=== PATIENT | male | born 1945 | race Caucasian/White ===

== ENCOUNTER 2018-12-19 17:10 | Observation (INO) | payer OTHER, SELFPAY ==
[2018-12-19] VITALS (8 sets, daily range): BP systolic 95–138; BP diastolic 62–92; PULSE 61–101; RESP 15–21; TEMP 36.6–36.8; O2SAT 96–100; BMI 22.4
--- NOTE | 2018-12-19 10:00 | DI.ECHO.S_ITS ---
Echocardiogram Report + + :Name: SUSANNE CHANDLER Study Date: 12/21/2018 Height: 73 in : :[facility] Weight: 170 lb : : Gender: Male BSA: 2.0 m2 : :: 1945 Age: 73 yrs BP: 104/65 mmHg: :Reason For Study: TIA : :Ordering Physician: : :Soy Valderrama Performed By: Heidi Cao : :Referring: TAMAR BARAJAS : + + Interpretation Summary The patient was in atrial fibrillation with heart rates between 81-106 bpm during the exam. The left ventricle is moderately dilated. Left ventricular ejection fraction is estimated to be 20 +/- 5%. There is severe global hypokinesis of the left ventricle. There is no obvious LV thrombus. The right ventricle is mildly dilated. Right ventricular systolic function is mildly reduced. There is mild to moderate mitral regurgitation. Procedure: A two-dimensional transthoracic echocardiogram with color flow and Doppler was performed. The study quality was technically good. There is no prior echocardiogram noted for this patient. The patient was in atrial fibrillation with heart rates between 81-106 bpm during the exam. Left Ventricle: The left ventricle is moderately dilated. There is normal left ventricular wall thickness. There is no thrombus. A false chord is noted (normal variant). Left ventricular ejection fraction is estimated to be 20 +/- 5%. There is severe global hypokinesis of the left ventricle. Diastolic function could not be accurately assessed due to atrial fibrillation. Right Ventricle: The right ventricle is mildly dilated. Right ventricular systolic function is mildly reduced. Atria: The left atrium is mildly dilated. Right atrial size is normal. Injection of contrast documented no interatrial shunt. Mitral Valve: The mitral valve leaflets appear mildly thickened, but open well. There is a flat closure plane of the the mitral valve leaflets. There is mild mitral annular calcification. There is mild to moderate mitral regurgitation. Aortic Valve: The aortic valve opens well. The aortic valve is not well visualized. There is discrete nodular thickening of the non- coronary cusp. The aortic valve is mildly calcified. There is no aortic valve stenosis. There is trace aortic regurgitation. Tricuspid Valve: The tricuspid valve leaflets are thickened and/or calcified, but open well. The right ventricular systolic pressure is estimated to be at least 20 mmHg based on an estimated right atrial pressure of 3 mm Hg. There is mild tricuspid regurgitation. Pulmonic Valve: The pulmonic valve is not well seen, but is grossly normal. There is trace pulmonic regurgitation. Great Vessels: The aortic root is mildly dilated. The aortic arch could not be visualized. The ascending aorta is normal in size. The IVC is of normal diameter and collapses greater than 50% with a sniff. This suggests a low right atrial pressure of 3 mm Hg. Pericardium/ Pleura There is no pericardial effusion. There is no pleural effusion. MMode/2D Measurements & Calculations LVIDd: 6.3 cm Ao root diam: 4.4 cm LVIDs: 5.3 cm Aortic Jxn: 3.4 cm FS: 15.4 % asc Aorta Diam: 3.8 cm IVSd: 1.1 cm LVPWd: 0.88 cm LV raphael. diameter/BSA (cm/m^2): 3.1 LV sys. diameter/BSA (cm/m^2): 2.7 LA dimension: 3.6 cm RA long axis: 5.3 cm LA A2 area: 28.2 cm2 RA area: 23.1 cm2 LA A4 area: 21.4 cm2 RA vol: 85.8 ml LA length (vol): 7.1 cm RA : 42.7 ml/m2 LA vol: 72.1 ml IVC diam: 1.7 cm LA vol index: 35.9 ml/m2 Doppler Measurements & Calculations Ao V2 max: 85.2 cm/sec MV P1/2t: 72.2 msec Ao V2 mean: 59.7 cm/sec Ao max P.9 mmHg Ao mean P.6 mmHg Ao V2 VTI: 14.2 cm TR max cathie: 202.9 cm/sec MV V2 mean: 23.6 cm/sec TR max P.5 mmHg MV mean P.30 mmHg PA V2 max: 46.3 cm/sec MV V2 VTI: 8.4 cm PA V2 mean: 28.8 cm/sec PA mean P.42 mmHg PA Accel Time: 0.19 sec MV P1/2t max cathie: 45.3 cm/sec MVA(P1/2t): 3.0 cm2 _ Reading Physician:02:32 PM
--- NOTE | 2018-12-19 17:25 | DI.RAD.S_ITS ---
PROCEDURE: XR CHEST 1V INDICATIONS: Possible stroke TECHNIQUE: One view of the chest was acquired. COMPARISON: None. FINDINGS: Surgical changes and devices: None. Lungs and pleura: Lungs are clear. No pleural effusions or pneumothorax. Mediastinum: Mediastinal contours appear normal. Heart size is normal. Bones and chest wall: No suspicious bony lesions. Overlying soft tissues appear unremarkable. IMPRESSION: No evidence acute pulmonary process. Dictated by: Anselmo Heredia M.D. on 12/19/2018 at 18:23 Approved by: Anselmo Heredia M.D. on 12/19/2018 at 18:24
[2018-12-19 17:34] LABS: Add Manual Diff / Slide Review NO; Basophils Absolute Auto 100 /uL (0-100); Basophils Percent Auto 0.9 % (0-2); Eosinophils Absolute Auto 100 /uL (0-450); Eosinophils Percent Auto 1.3 % (2-4); Hematocrit 47.5 % (41-53); Hemoglobin 15.7 g/dL (13.5-17.5); Lymphocytes Absolute Auto 1500 /uL (1100-4500); Lymphocytes Percent Auto 22.6 % (25-40); Mean Corpuscular Volume 93.9 fL (80-100); Monocytes Absolute Auto 600 /uL (0-900); Monocytes Percent Auto 9.6 % (3-14); Neutrophils Absolute Auto 4300 /uL (1500-7000); Neutrophils Percent Auto 65.6 % (50-75); Platelet Count 207 X10^3/uL (150-400); Red Blood Cell Count 5.06 X10^6/uL (4.5-5.9); Red Cell Distribution Width 13.3 % (11.6-14.8); White Blood Cell Count 6.6 X10^3/uL (4.5-11.0)
--- NOTE | 2018-12-19 17:37 | DI.CT.S_ITS ---
PROCEDURE: CT HEAD/BRAIN WO CON INDICATIONS: TIA/confusion in thinners TECHNIQUE: Noncontrast 4.5 mm thick angled axial sections acquired from the foramen magnum to the vertex, with coronal and sagittal reformats. For radiation dose reduction, the following was used: automated exposure control, adjustment of mA and/or kV according to patient size. COMPARISON: None. FINDINGS: Image quality: Excellent. CSF spaces: Basal cisterns are patent. No extra-axial fluid collections. Ventricles are normal in size and shape. Brain: No midline shift. No intracranial masses or hemorrhage. Quiles-white matter interface is normal. Skull and face: Calvarium and visualized facial bones are intact, without suspicious lesions. Sinuses: Visualized sinuses and mastoids are clear. IMPRESSION: Negative head CT with no evidence of acute stroke, hemorrhage, or mass. Dictated by: Anselmo Heredia M.D. on 12/19/2018 at 18:14 Approved by: Anselmo Heredia M.D. on 12/19/2018 at 18:14
[2018-12-19 17:41] LABS: INR 2.2 (0.9-1.3)
[2018-12-19 17:43] LABS: PTT Partial Thromboplastin Tim 48 SECONDS (26.4-36.2)
[2018-12-19 17:45] LABS: Alanine Aminotransferase 37 IU/L (21-72); Albumin 4.2 g/dL (3.5-5.0); Albumin Globulin Ratio 1.4 (1.0-2.8); Alkaline Phosphatase 50 U/L (38-126); Aspartate Aminotransferase 37 IU/L (17-59); BUN Creatinine Ratio 21.3 (6-22); Bilirubin Total 0.5 mg/dL (0.2-1.3); Blood Urea Nitrogen 17 mg/dL (9-20); Calcium 9.2 mg/dL (8.4-10.2); Carbon Dioxide 25 mmol/L (22-32); Chloride 105 mmol/L (98-107); Creatine Kinase 41 U/L (55-170); Estimated Glomerular Filt Rate > 60.0 mL/min (>60); Glucose 91 mg/dL (80-110); HEMOLYSIS 19 (0-50); Potassium 4.2 mmol/L (3.4-5.1); Sodium 139 mmol/L (137-145); Total Protein 7.2 g/dL (6.3-8.2)
[2018-12-19 17:48] LABS: Lipase 135 U/L (23-300)
--- NOTE | 2018-12-19 17:54 | ED_ITS ---
HPI - Neuro Symptoms/Deficit <JENNIFFER Cardona - Last Filed: 12/19/18 20:49> General Chief Complaint: Neuro Symptoms/Deficit Stated Complaint: Loss of memory, unable to speak,(resolved) Time Seen by Provider: 12/19/18 17:28 Source: patient and EMS Mode of arrival: EMS Limitations: no limitations History of Present Illness HPI Narrative: The patient is a 73-year-old male nonsmoker with history of AFib on Coumadin, hyperlipidemia, BPH, GERD who presents with a chief complaint of visual deficit and aphasia times 30 minutes. The patient stated he had sudden right-sided vision loss at 4:00 p.m. and also could not get words out. He was recently diagnosed with AFib 1 month ago, is on Coumadin. He has an echocardiogram scheduled later this month. He denies any fevers nausea vomiting or diarrhea. He states all symptoms resolved within 30 minutes. He denies any chest pain or shortness of breath. He is concerned that he has had a mini- stroke. On Anticoagulants: Yes (warfarin) Related Data Home Medications Medication Instructions Recorded Confirmed CoQ-10 1 tab PO DAILY 12/19/18 12/19/18 Reservatrol 1 dose PO DAILY 12/19/18 12/19/18 Vitamin B Tablet 1 tab PO DAILY 12/19/18 12/19/18 Vitamin D3 1 cap PO DAILY 12/19/18 12/19/18 metoprolol succinate 25 mg PO DAILY 12/19/18 12/19/18 multivitamin 1 tab PO DAILY 12/19/18 12/19/18 rosuvastatin 10 mg PO DAILY 12/19/18 12/19/18 warfarin 2.5 mg PO Q OTHER DAY 12/19/18 12/19/18 warfarin 5 mg PO Q OTHER DAY 12/19/18 12/19/18 Allergies Allergy/AdvReac Type Severity Reaction Status Date / Time No Known Drug Allergies Allergy Verified 12/19/18 17:28 Review of Systems <JENNIFFER Cardona - Last Filed: 12/19/18 20:49> Review of Systems Narrative: GENERAL: Denies chills, fatigue, malaise, fever, sweats. HEENT: Denies sinus pain, ear pain, sore throat, difficulty swallowing, dizziness. RESPIRATORY: Denies dyspnea, cough, wheezing, hemoptysis, sputum. CARDIOVASCULAR: Denies chest pain, palpitations, orthopnea, edema, GASTROINTESTINAL: Denies nausea, vomiting, abdominal pain, diarrhea, constipation, melena. : Denies dysuria, frequency, incontinence, hematuria, urinary retention. MUSCULOSKELETAL: denies weakness, joint pain, or bony pain SKIN: Denies rash, skin lesions, or other NEUROLOGIC: See HPI PSYCHIATRIC: No concerning psychosocial issues. 12 point review of systems is negative except for those stated above Patient History <JENNIFFER Cardona - Last Filed: 12/19/18 20:49> Medical History (Updated 12/19/18 @ 21:31 by JENNIFFER Cardona) Afib (Acute) Hyperlipidemia (Acute) Social History household members: spouse Smoking Status: Never smoker alcohol intake: former Social History household members: spouse Smoking Status: Never smoker alcohol intake: former Substance Use Type: does not use Exam <JENNIFFER Cardona - Last Filed: 12/19/18 20:49> Narrative Exam Narrative: GENERAL: This is a well-nourished, well-developed patient, in mild distress. HEAD: Atraumatic. Normocephalic. No temporal or scalp tenderness. EYES: Pupils equal round and reactive. Extraocular motions intact. No scleral icterus. No injection or drainage. ENT: Nose without bleeding, purulent drainage or septal hematoma. Throat without erythema, tonsillar hypertrophy or exudate. Uvula midline. Airway patent. NECK: Trachea midline. No JVD or lymphadenopathy. Supple, nontender, no meningeal signs. CARDIOVASCULAR: Regular rate and irregular rhythm without murmurs, gallops, or rubs. RESPIRATORY: Clear to auscultation. Breath sounds equal bilaterally. No wheezes, rales, or rhonchi. GASTROINTESTINAL: Abdomen soft, non-tender, nondistended. No hepato- splenomegaly, or palpable masses. No guarding. EXTREMITIES: No clubbing, cyanosis, or edema. No joint tenderness, effusion, or edema noted. BACK: Nontender without deformity or crepitance. No flank tenderness. NEURO: AOx3. No gross cranial nerve deficit. Strength is equal upper and lower extremities bilaterally. NIH score is 0. Clear speech. Sensation intact bilaterally. SKIN: No rash or erythema on visible skin Initial Vital Signs Initial Vital Signs: Vital Signs Temperature 97.9 F 12/19/18 17:21 Pulse Rate 83 12/19/18 17:21 Respiratory Rate 15 12/19/18 17:21 Blood Pressure 131/85 12/19/18 17:21 Pulse Oximetry 99 12/19/18 17:21 <Marga Mccrary DO - Last Filed: 12/20/18 02:42> Initial Vital Signs Initial Vital Signs: Vital Signs Temperature 97.9 F 12/19/18 17:21 Pulse Rate 83 12/19/18 17:21 Respiratory Rate 15 12/19/18 17:21 Blood Pressure 131/85 12/19/18 17:21 Pulse Oximetry 99 12/19/18 17:21 Scores <JENNIFFER Cardona - Last Filed: 12/19/18 20:49> ABCD2 Age >= 60 years: yes Initial BP. Either SBP >= 140 or DBP >= 90.: no Clinical features of the TIA: speech disturbance without weakness Duration of symptoms: 10-59 minutes History of diabetes: no ABCD2 Score: 3 GCS [place] coma scale eye opening: Spontaneous Melonie coma scale verbal response: Orientated [place] coma scale motor response: Obey commands [place] coma scale total score: 15 NIH Stroke Scale Level of Conciousness: Alert, keenly responsive Ask month/age: Answers both questions correctly. Open/close eyes, close hand: Performs both tasks correctly Best gaze horizontal: Normal Visual heredia: No visual loss Facial palsy: Normal symetrical movement Left arm drift: No drift for full 10 sec Right arm drift: No drift for full 10 sec Left leg drift: No drift for full 10 sec Right leg drift: No drift for full 10 sec Limb ataxia: Absent Sensory on face/arms/legs: Normal, no sensory loss Best language: No aphasia, normal Dysarthria: Normal Extinction or inattention: No abnormality Total NIH Stroke scale score: 0 Course <JENNIFFER Cardona - Last Filed: 12/19/18 20:49> Orders Ordered: Acetaminophen (Tylenol) 650 mg PO Q6HR PRN PRN Reason: As Needed for Fever/Mild Pain Al Hydrox/Mg Hydrox/Simethicone (Maalox Plus) 30 ml PO Q6HR PRN PRN Reason: Dyspepsia Bisacodyl (Dulcolax) 10 mg SD DAILY PRN PRN Reason: Constipation Calcium Carbonate (Tums) 1,000 mg PO Q4HR PRN PRN Reason: Dyspepsia Docusate Sodium (Colace) 100 mg PO BID PRN PRN Reason: Constipation Metoprolol Succinate (Toprol Xl) 25 mg PO DAILY LUDIN Ondansetron HCl (Zofran) 4 mg IV Q8HR PRN PRN Reason: Nausea And Vomiting Rosuvastatin Calcium (Crestor) 10 mg PO DAILY LUDIN Warfarin Sodium (Coumadin) 5 mg PO QOD LUDIN Warfarin Sodium (Coumadin) 2.5 mg PO QOD LUDIN Vital Signs Vital signs: Vital Signs - 8 hr 12/19/18 19:49 12/19/18 20:00 12/19/18 20:30 Pulse Rate 80 78 72 Respiratory Rate 16 20 16 Blood Pressure [Left Arm] 105/62 119/73 Pulse Oximetry 99 99 97 <Marga Mccrary DO - Last Filed: 12/20/18 02:42> Orders Ordered: Acetaminophen (Tylenol) 650 mg PO Q6HR PRN PRN Reason: As Needed for Fever/Mild Pain Al Hydrox/Mg Hydrox/Simethicone (Maalox Plus) 30 ml PO Q6HR PRN PRN Reason: Dyspepsia Bisacodyl (Dulcolax) 10 mg SD DAILY PRN PRN Reason: Constipation Calcium Carbonate (Tums) 1,000 mg PO Q4HR PRN PRN Reason: Dyspepsia Docusate Sodium (Colace) 100 mg PO BID PRN PRN Reason: Constipation Metoprolol Succinate (Toprol Xl) 25 mg PO DAILY [facility] Ondansetron HCl (Zofran) 4 mg IV Q8HR PRN PRN Reason: Nausea And Vomiting Rosuvastatin Calcium (Crestor) 10 mg PO DAILY LUDIN Warfarin Sodium (Coumadin) 5 mg PO QOD LUDIN Warfarin Sodium (Coumadin) 2.5 mg PO QOD LUDIN Vital Signs Vital signs: Vital Signs - 8 hr 12/19/18 19:49 12/19/18 20:00 12/19/18 20:30 Pulse Rate 80 78 72 Respiratory Rate 16 20 16 Blood Pressure [Left Arm] 105/62 119/73 Pulse Oximetry 99 99 97 MDM - Neuro Symptoms/Deficit <EFRAIN CardonaBC - Last Filed: 12/19/18 20:49> Lab Data Result diagrams: 12/19/18 17:25 10/15/19 17:25 Labs: Lab Results 12/19/18 12/19/18 12/19/18 Range/Units 17:25 17:25 17:25 WBC 6.6 (4.5-11.0) X10^3/uL RBC 5.06 (4.5-5.9) X10^6/uL Hgb 15.7 (13.5-17.5) g/dL Hct 47.5 (41-53) % MCV 93.9 (80-100) fL MCH 31.0 (26-34) PG MCHC 33.0 (30-36) % RDW 13.3 (11.6-14.8) % Plt Count 207 (150-400) X10^3/uL Neut % (Auto) 65.6 (50-75) % Lymph % (Auto) 22.6 L (25-40) % [place] % (Auto) 9.6 (3-14) % Eos % (Auto) 1.3 L (2-4) % Baso % (Auto) 0.9 (0-2) % Neut # (Auto) 4300 (9016-8631) /uL Lymph # (Auto) 1500 (6205-8758) /uL [place] # (Auto) 600 (0-900) /uL Eos # (Auto) 100 (0-450) /uL Baso # (Auto) 100 (0-100) /uL PT 26.0 H (10.1-12.7) SECONDS INR 2.2 H (0.9-1.3) APTT 48 H (26.4-36.2) SECONDS Sodium 139 (137-145) mmol/L Potassium 4.2 (3.4-5.1) mmol/L Chloride 105 (98-107) mmol/L Carbon Dioxide 25 (22-32) mmol/L BUN 17 (9-20) mg/dL Creatinine 0.80 (0.66-1.25) mg/dL Estimated GFR > 60.0 (>60) mL/min BUN/Creatinine Ratio 21.3 (6-22) Glucose 91 (80-110) mg/dL Calcium 9.2 (8.4-10.2) mg/dL Total Bilirubin 0.5 (0.2-1.3) mg/dL AST 37 (17-59) IU/L ALT 37 (21-72) IU/L Alkaline Phosphatase 50 (38-126) U/L Total Creatine Kinase 41 L (55-170) U/L CK-MB (CK-2) TNP CK-MB (CK-2) Rel Index TNP Troponin I < 0.012 (0.01-0.034) ng/mL Total Protein 7.2 (6.3-8.2) g/dL Albumin 4.2 (3.5-5.0) g/dL Globulin 3.0 (1.7-4.1) g/dL Albumin/Globulin Ratio 1.4 (1.0-2.8) Lipase (23-300) U/L 12/19/ Range/Units 17:41 WBC (4.5-11.0) X10^3/uL RBC (4.5-5.9) X10^6/uL Hgb (13.5-17.5) g/dL Hct (41-53) % MCV (80-100) fL MCH (26-34) PG MCHC (30-36) % RDW (11.6-14.8) % Plt Count (150-400) X10^3/uL Neut % (Auto) (50-75) % Lymph % (Auto) (25-40) % [place] % (Auto) (3-14) % Eos % (Auto) (2-4) % Baso % (Auto) (0-2) % Neut # (Auto) (0074-0106) /uL Lymph # (Auto) (7773-6106) /uL [place] # (Auto) (0-900) /uL Eos # (Auto) (0-450) /uL Baso # (Auto) (0-100) /uL PT (10.1-12.7) SECONDS INR (0.9-1.3) APTT (26.4-36.2) SECONDS Sodium (137-145) mmol/L Potassium (3.4-5.1) mmol/L Chloride (98-107) mmol/L Carbon Dioxide (22-32) mmol/L BUN (9-20) mg/dL Creatinine (0.66-1.25) mg/dL Estimated GFR (>60) mL/min BUN/Creatinine Ratio (6-22) Glucose (80-110) mg/dL Calcium (8.4-10.2) mg/dL Total Bilirubin (0.2-1.3) mg/dL AST (17-59) IU/L ALT (21-72) IU/L Alkaline Phosphatase (38-126) U/L Total Creatine Kinase (55-170) U/L CK-MB (CK-2) CK-MB (CK-2) Rel Index Troponin I (0.01-0.034) ng/mL Total Protein (6.3-8.2) g/dL Albumin (3.5-5.0) g/dL Globulin (1.7-4.1) g/dL Albumin/Globulin Ratio (1.0-2.8) Lipase 135 (23-300) U/L Urine Dip Bedside Urine Glucose Negative Bedside Urine Bilirubin - Negative Bedside Urine Ketone - Negative Urine Specific [place] 1.015 Bedside Urine Occult Blood - Negative Bedside Urine pH 6.0 Bedside Urine Protein - Negative Bedside Urine Urobilinogen - Negative Bedside Urine Nitrite - Negative Bedside Urine Leukocytes - Negative Esterase Imaging Data Chest x-ray: Radiologist's impression: [address] [address] XRay Report Signed Patient: Jerry Lawler FMR#: [id number] : 1945cct:[id number] Age/Sex: 73 / MDate of Service: 12/19/18 Loc: ED Accession Number: [id number] Procedure: XR chest 1V Ordering Provider: Prasanna Montanez D.O. PROCEDURE: XR CHEST 1V INDICATIONS: Possible stroke TECHNIQUE: One view of the chest was acquired. COMPARISON: None. FINDINGS: Surgical changes and devices: None. Lungs and pleura: Lungs are clear. No pleural effusions or pneumothorax. Mediastinum: Mediastinal contours appear normal. Heart size is normal. Bones and chest wall: No suspicious bony lesions. Overlying soft tissues appear unremarkable. IMPRESSION: No evidence acute pulmonary process. Dictated by: Anselmo Heredia M.D. on 12/19/2018 at 18:23 Approved by: Anselmo Heredia M.D. on 12/19/2018 at 18:24 CT scan - head: Radiologist's impression: Jerry Lawler F 73 M [address] [address] [address] Scan Report Signed Patient: Jerry Lawler FMR#: [id number] : 4Acct:[id number] Age/Sex: 73 / MDate of Service: 12/19/18 Loc: ED Accession Number: [id number] Procedure: CT head/brain wo con Ordering Provider: Prasanna Montanez D.O. PROCEDURE: CT HEAD/BRAIN WO CON INDICATIONS: TIA/confusion in thinners TECHNIQUE: Noncontrast 4.5 mm thick angled axial sections acquired from the foramen magnum to the vertex, with coronal and sagittal reformats. For radiation dose reduction, the following was used: automated exposure control, adjustment of mA and/or kV according to patient size. COMPARISON: None. FINDINGS: Image quality: Excellent. CSF spaces: Basal cisterns are patent. No extra-axial fluid collections. Ventricles are normal in size and shape. Brain: No midline shift. No intracranial masses or hemorrhage. Quiles-white matter interface is normal. Skull and face: Calvarium and visualized facial bones are intact, without suspicious lesions. Sinuses: Visualized sinuses and mastoids are clear. IMPRESSION: Negative head CT with no evidence of acute stroke, hemorrhage, or mass. Dictated by: Anselmo Heredia M.D. on 12/19/2018 at 18:14 Approved by: Anselmo Heredia M.D. on 12/19/2018 at 18:14 ECG Data Interpretation: Atrial fibrillation. Ventricular rate 90. No ectopy noted. QRS duration 92. MDM Narrative Medical decision making narrative: The patient is a 73-year-old male with history of AFib on Coumadin who presents with TIA symptoms. There fully resolved NIH score is currently 0. Given the patient has many risk factors including AFib, hyperlipidemia etc a feels with the patient should be admitted for further evaluation after a TIA. This would include echocardiogram, carotid duplex etc. I spoke with Tj PANTOJA hospitalist, who kindly agreed to admit the patient to observation status on telemetry for further TIA workup. Patient states understanding and has no questions or concerns. <Marga Mccrary, - Last Filed: 12/20/18 02:42> Lab Data Labs: Lab Results 12/19/18 12/19/18 12/19/18 Range/Units 17:25 17:25 17:25 WBC 6.6 (4.5-11.0) X10^3/uL RBC 5.06 (4.5-5.9) X10^6/uL Hgb 15.7 (13.5-17.5) g/dL Hct 47.5 (41-53) % MCV 93.9 (80-100) fL MCH 31.0 (26-34) PG MCHC 33.0 (30-36) % RDW 13.3 (11.6-14.8) % Plt Count 207 (150-400) X10^3/uL Neut % (Auto) 65.6 (50-75) % Lymph % (Auto) 22.6 L (25-40) % [place] % (Auto) 9.6 (3-14) % Eos % (Auto) 1.3 L (2-4) % Baso % (Auto) 0.9 (0-2) % Neut # (Auto) 4300 (7581-1159) /uL Lymph # (Auto) 1500 (9002-6413) /uL [place] # (Auto) 600 (0-900) /uL Eos # (Auto) 100 (0-450) /uL Baso # (Auto) 100 (0-100) /uL PT 26.0 H (10.1-12.7) SECONDS INR 2.2 H (0.9-1.3) APTT 48 H (26.4-36.2) SECONDS Sodium 139 (137-145) mmol/L Potassium 4.2 (3.4-5.1) mmol/L Chloride 105 (98-107) mmol/L Carbon Dioxide 25 (22-32) mmol/L BUN 17 (9-20) mg/dL Creatinine 0.80 (0.66-1.25) mg/dL Estimated GFR > 60.0 (>60) mL/min BUN/Creatinine Ratio 21.3 (6-22) Glucose 91 (80-110) mg/dL Calcium 9.2 (8.4-10.2) mg/dL Total Bilirubin 0.5 (0.2-1.3) mg/dL AST 37 (17-59) IU/L ALT 37 (21-72) IU/L Alkaline Phosphatase 50 (38-126) U/L Total Creatine Kinase 41 L (55-170) U/L CK-MB (CK-2) TNP CK-MB (CK-2) Rel Index TNP Troponin I < 0.012 (0.01-0.034) ng/mL Total Protein 7.2 (6.3-8.2) g/dL Albumin 4.2 (3.5-5.0) g/dL Globulin 3.0 (1.7-4.1) g/dL Albumin/Globulin Ratio 1.4 (1.0-2.8) Lipase (23-300) U/L 12/19/18 Range/Units 17:41 WBC (4.5-11.0) X10^3/uL RBC (4.5-5.9) X10^6/uL Hgb (13.5-17.5) g/dL Hct (41-53) % MCV (80-100) fL MCH (26-34) PG MCHC (30-36) % RDW (11.6-14.8) % Plt Count (150-400) X10^3/uL Neut % (Auto) (50-75) % Lymph % (Auto) (25-40) % [place] % (Auto) (3-14) % Eos % (Auto) (2-4) % Baso % (Auto) (0-2) % Neut # (Auto) (0914-9543) /uL Lymph # (Auto) (9343-8385) /uL [place] # (Auto) (0-900) /uL Eos # (Auto) (0-450) /uL Baso # (Auto) (0-100) /uL PT (10.1-12.7) SECONDS INR (0.9-1.3) APTT (26.4-36.2) SECONDS Sodium (137-145) mmol/L Potassium (3.4-5.1) mmol/L Chloride (98-107) mmol/L Carbon Dioxide (22-32) mmol/L BUN (9-20) mg/dL Creatinine (0.66-1.25) mg/dL Estimated GFR (>60) mL/min BUN/Creatinine Ratio (6-22) Glucose (80-110) mg/dL Calcium (8.4-10.2) mg/dL Total Bilirubin (0.2-1.3) mg/dL AST (17-59) IU/L ALT (21-72) IU/L Alkaline Phosphatase (38-126) U/L Total Creatine Kinase (55-170) U/L CK-MB (CK-2) CK-MB (CK-2) Rel Index Troponin I (0.01-0.034) ng/mL Total Protein (6.3-8.2) g/dL Albumin (3.5-5.0) g/dL Globulin (1.7-4.1) g/dL Albumin/Globulin Ratio (1.0-2.8) Lipase 135 (23-300) U/L Urine Dip Bedside Urine Glucose Negative Bedside Urine Bilirubin - Negative Bedside Urine Ketone - Negative Urine Specific [place] 1.015 Bedside Urine Occult Blood - Negative Bedside Urine pH 6.0 Bedside Urine Protein - Negative Bedside Urine Urobilinogen - Negative Bedside Urine Nitrite - Negative Bedside Urine Leukocytes - Negative Esterase Discharge Plan Departure Patient Disposition: Admitted as Observation Clinical Impression: Brain TIA Discharge Date/Time: 12/19/18 21:40 Admit Date/Time: 12/19/18 20:31 Admit Provider: Nakul Spencer
[2018-12-19 17:57] LABS: Troponin I < 0.012 ng/mL (0.01-0.034)
--- NOTE | 2018-12-19 20:30 | PC.NURSE ---
2030 Attempted to give report, RN unavailable for report and nursing supervisor patching stated RN had another admission and would call to get report when available.
--- NOTE | 2018-12-19 22:04 | PC.NURSE ---
Pt arrived from ED alert/oriented. Denies any discomfort. States that all S/S resolved. HL RFA intact NIH score = 0 Pt oriented to room and call system. Call light w/in reach, bed alarm on for pt safety. Continue w/plan of care.
--- NOTE | 2018-12-19 23:29 | DI.MRI.S_ITS ---
PROCEDURE: MR STROKE Pre- and post-contrast brain MRI, non-contrast brain MR angiogram, pre- and postcontrast neck MR angiogram INDICATIONS: TIA, Atrial fibrillation TECHNIQUE: Brain: Noncontrast axial T1 spin echo, axial T2 fast spin echo, sagittal and axial FLAIR, coronal T2 fast spin echo, axial gradient echo, axial diffusion and ADC through the brain. After the administration of contrast, axial 3D VIBE of the cranial vasculature and brain. Brain MRA: Non-contrast 3-D time of flight MR angiogram, with multiple gpioqhs-usmnrvtbb-mnvnfutcyy (MIP) reformats performed. Neck MRA: Axial and sagittal TruFISP through the neck. Coronal dynamic MR angiogram during administration of contrast in the arterial and venous phases, with 3-dimenstional mqyptvi-bninmmtri-annnswofhb (MIP) reformats constructed from subtraction images. COMPARISON: [facility], CT, CT HEAD/BRAIN WO CON, 12/19/2018, 17:41. FINDINGS: Image quality: Excellent. BRAIN: CSF spaces: Ventricles are normal in size and shape. Basal cisterns are patent. No extra-axial fluid collections. Brain: No intracranial bleeds or mass effects. Quiles-white matter interface is normal. Diffusion weighted images show no acute ischemic insults. There is mild, diffuse cerebral volume loss. Brainstem appears normal. Normal intravascular flow voids are present. No GRE weighted abnormalities identified in the brain parenchyma. No abnormal intracranial enhancement. Skull and face: Calvarial marrow signal is normal. Orbits appear normal. Sinuses: Sinuses and mastoids are clear. BRAIN MR ANGIOGRAM: Anterior circulation: Intracranial internal carotid arteries are normal in size and enhancement. The flow within the paired anterior cerebral arteries is normal and symmetric. The flow within the middle cerebral arteries is normal and symmetric. The anterior communicating artery is seen. No stenoses, occlusions, or aneurysms. Posterior circulation: The visualized portions of the vertebral arteries demonstrate normal caliber, and join to form a normal appearing basilar artery. The flow within the posterior cerebral arteries is normal and symmetric. No stenoses, occlusions, or aneurysms. NECK MR ANGIOGRAM: Carotids: Great vessels demonstrate a conventional anatomy as they arise from the aortic arch. The origins of the common carotid arteries appear patent. The calibers and courses of both common carotid arteries are normal. The bifurcation regions appear normal bilaterally. The internal carotid arteries demonstrate normal course and caliber. Posterior circulation: The origins of the vertebral arteries appear patent. The left vertebral artery is dominant. More superior portions of both vertebral arteries demonstrate normal course and caliber, and join to form a normal appearing basilar artery. Miscellaneous: Subclavian arteries appear patent. Pre-contrast images through the neck show no soft tissue abnormalities. IMPRESSION: BRAIN MRI: 1. No acute intracranial disease process. 2. No areas of acute or chronic infarction. 3. No intracranial hemorrhage. 4. No abnormal intracranial mass or suspicious postcontrast enhancement. 5. Mild, diffuse cerebral volume loss. BRAIN MR ANGIOGRAM: Negative examination. NECK MR ANGIOGRAM: Negative examination. Dictated by: Anali Garcia MD, PhD on 12/20/2018 at 9:53 Approved by: Anali Garcia MD, PhD on 12/20/2018 at 10:09
--- NOTE | 2018-12-19 23:49 | PC.NURSE ---
APARTMENT COORDINATOR: accidentally hit Advanced directives instead of ADLs (which was right above this one). Will not let me undo this. Alerted rn
[2018-12-20] VITALS (12 sets, daily range): BP systolic 102–132; BP diastolic 62–80; PULSE 75–95; RESP 16–20; TEMP 36.2–36.9; O2SAT 94–100; BMI 22.2
--- NOTE | 2018-12-20 06:02 | P.HP_ITS ---
History of Present Illness History of Present Illness Date Patient Seen: 12/20/18 Time Patient Seen: 23:10 Chief complaint: Loss of memory, unable to speak,(resolved) Narrative: Mr. Jerry Lawler this is a 73-year-old male patient with history significant of newly diagnosed atrial fibrillation 1 month ago started on warfarin therapy, hyperlipidemia, BPH, and GERD who presents to the ER with an abrupt onset of right visual field loss in both eyes at 4:00 p.m. the patient also developed aphasia stating he knew what he wanted to say could not get the words out. He states the symptoms abated by proximally 6:00 p.m. and had resolved by arrival to the ER. Patient had no prodromal symptoms no complaints of headaches or dizziness, no prior visual changes, no complaints of sore throat or nasal congestion. He reports no neck pain or back pain has no complaints of chest pain and appears unaware of his irregular heart rate. He reports no complaints of shortness of breath cough or wheezing. He has no abdominal pain nausea vomiting or changes in bowel or bladder habits. He experienced no ataxia or limb weakness. Upon arrival to the ER the patient is afebrile with temperature 97.9?, heart rate of 83, blood pressure 131/85, respirations of 15 with saturation of 99% on room air. He underwent CT which found no intracranial pathology and a chest x- ray was completed which also was negative for significant findings. His EKG shows atrial fibrillation with ventricular rate of [address] or T-wave changes. On laboratory analysis white count 6.6, hemoglobin of 15.7, hematocrit 47.5 and platelets of 207. On coagulation he has a PT of 26.0, PTT of 48 an INR of 2.0. His electrolytes are all within normal limits and has a BUN of 17 and creatinine is 0.8 with a nonfasting glucose of 91. His liver functions are all within normal range. The patient is admitted for further monitoring evaluation of TIA. Patient History Medical History (Updated 12/20/18 @ 06:14 by SCARLETT Cardenas) Afib (Acute) BPH (benign prostatic hyperplasia) (Acute) GERD (gastroesophageal reflux disease) (Acute) Hyperlipidemia (Acute) Surgical History (Updated 12/20/18 @ 06:14 by SCARLETT Cardenas) No history of previous surgery (Acute) Social History household members: spouse Smoking Status: Never smoker alcohol intake: former Family & Social History Social History: household members spouse Prior Living Arrangements House Safety & Behavioral: Feels Safe in Current Yes Environment Been Physically Hurt or No Threatened By a Person Suicidal Ideation Description None Suicide Plan Description No Plan Tobacco & Substance use: Smoking Status Never smoker alcohol intake former Substance Use Type does not use Comment: The patient lives in a single family 2 story home with his to whom he has been for 42 years. He provides a family history his father passing away at age of 71 with lung cancer and was a heavy smoker. His mother at 88 with bone cancer. He has 1 brother 1 sister both of whom he describes is in good health. Smoking: The patient reports never using tobacco products. Alcohol: The patient was a moderate drinker and quit 3 years ago. Substance use the patient denies recreational pharmaceuticals, use of herbal or cannabis products. Advanced directives: The patient states he does have formal advanced directive and indicates his wish to be FULL CODE. He designates his to be surrogate decision maker. Meds Home Medications and Allergies Home Medications Medication Instructions Recorded Confirmed Type CoQ-10 1 tab PO DAILY 12/19/18 12/19/18 History Reservatrol 1 dose PO DAILY 12/19/18 12/19/18 History Vitamin B Tablet 1 tab PO DAILY 12/19/18 12/19/18 History Vitamin D3 1 cap PO DAILY 12/19/18 12/19/18 History metoprolol succinate 25 mg PO DAILY 12/19/18 12/19/18 History multivitamin 1 tab PO DAILY 12/19/18 12/19/18 History rosuvastatin 10 mg PO DAILY 12/19/18 12/19/18 History warfarin 2.5 mg PO Q OTHER DAY 12/19/18 12/19/18 History warfarin 5 mg PO Q OTHER DAY 12/19/18 12/19/18 History Allergies Allergy/AdvReac Type Severity Reaction Status Date / Time No Known Drug Allergies Allergy Verified 12/19/18 17:28 Review of Systems Review of Systems ROS Unobtainable: All systems reviewed & are unremarkable except as noted in HPI and below Exam Vital Signs (past 8 hours): - 12/19/18 22:21 12/19/18 23:29 12/20/18 00:10 Temperature 98.1 F 98.3 F Pulse Rate 82 77 Respiratory Rate 18 16 Blood Pressure 138/89 122/78 Pulse Oximetry 100 96 96 Oxygen Delivery Method Room Air Oxygen Flow Rate 0 Narrative Exam Narrative: GENERAL APPEARANCE: well developed, well nourished, in no acute distress. HEENT: Normocephalic, no ptosis, PERRLA, conjunctiva clear, EOMs intact without nystagmus, visual heredia intact, no sinus tenderness to percussion, no rhinorrhea, mucous membranes are moist and pink without lesions or exudate. NECK/THYROID: neck supple, no JVD, no carotid bruit, no thyromegaly, trachea midline. LYMPH NODES: no cervical or supraclavicular lymphadenopathy. SKIN: warm and dry, no suspicious lesions, no rashes, ulcerations or petechiae. HEART: Irregularly irregular rhythm, S1-S2, no murmur, no rubs or gallops, brisk capillary refill, no edema LUNGS: clear to auscultation bilaterally, no coarseness crackles or wheezing, no cough present CHEST: Symmetrical movement, no accessory muscle use, no pain to AP and lateral compression. ABDOMEN: Soft, no distention, no abdominal tenderness, no organomegaly, no flank or suprapubic tenderness, active bowel tones. BACK: Normal curvature, nontender to palpation, no CVA tenderness on percussion EXTREMITIES: moves all extremities, strength is 5/5 and symmetrical, no deformities or joint effusions. NEUROLOGIC: AAO x4, no focal neurologic deficits, cranial nerves II-XII grossly intact, NIH score 0, sensation intact to light touch. PSYCH: alert, cognitive function intact, good eye contact, appropriate with stable behavior Objective Labs Result Diagrams: 12/19/18 17:25 12/20/18 05:20 Labs: Laboratory Results - last 24 hr 12/19/18 12/19/18 12/19/18 17:25 17:25 17:25 WBC 6.6 RBC 5.06 Hgb 15.7 Hct 47.5 MCV 93.9 MCH 31.0 MCHC 33.0 RDW 13.3 Plt Count 207 Neut % (Auto) 65.6 Lymph % (Auto) 22.6 L [place] % (Auto) 9.6 Eos % (Auto) 1.3 L Baso % (Auto) 0.9 Neut # (Auto) 4300 Lymph # (Auto) 1500 [place] # (Auto) 600 Eos # (Auto) 100 Baso # (Auto) 100 PT 26.0 H INR 2.2 H APTT 48 H Sodium 139 Potassium 4.2 Chloride 105 Carbon Dioxide 25 BUN 17 Creatinine 0.80 Estimated GFR > 60.0 BUN/Creatinine Ratio 21.3 Glucose 91 Calcium 9.2 Total Bilirubin 0.5 AST 37 ALT 37 Alkaline Phosphatase 50 Total Creatine Kinase 41 L CK-MB (CK-2) TNP CK-MB (CK-2) Rel Index TNP Troponin I < 0.012 Total Protein 7.2 Albumin 4.2 Globulin 3.0 Albumin/Globulin Ratio 1.4 Lipase 12/19/18 17:41 WBC RBC Hgb Hct MCV MCH MCHC RDW Plt Count Neut % (Auto) Lymph % (Auto) [place] % (Auto) Eos % (Auto) Baso % (Auto) Neut # (Auto) Lymph # (Auto) [place] # (Auto) Eos # (Auto) Baso # (Auto) PT INR APTT Sodium Potassium Chloride Carbon Dioxide BUN Creatinine Estimated GFR BUN/Creatinine Ratio Glucose Calcium Total Bilirubin AST ALT Alkaline Phosphatase Total Creatine Kinase CK-MB (CK-2) CK-MB (CK-2) Rel Index Troponin I Total Protein Albumin Globulin Albumin/Globulin Ratio Lipase 135 Assessment & Plan Assessment & Plan narrative: This is a 73-year-old male patient who is admitted to the hospital following spontaneous resolving neurological symptoms consistent with TIA. The patient is also newly diagnosed with atrial fibrillation and is on Coumadin therapy with a therapeutic INR. 1. Transitory ischemic attack, acute, resolved upon arrival, active -the patient developed right visual field cut and expressive aphasia at approximately 4:00 p.m. and resolving by 6:00 p.m.. -patient is newly diagnosed with atrial fibrillation and is anticoagulated on warfarin with therapeutic INR of 2.2 -serial neurologic evaluations -patient is on cardiac telemetry -will obtain echocardiogram -will obtain MR stroke protocol 2. persistent atrial fibrillation, present on admission, active -patient diagnosed with atrial fibrillation 1 month ago -anticoagulated on warfarin alternating doses of 2.5 in 5 mg every other day, INR is therapeutic at 2.2. -continue current rate control with metoprolol succinate 25 mg daily. -will obtain echocardiogram 3. Hyperlipidemia, chronic, active -will increase the patient's rosuvastatin dose to 20 mg daily. -will obtain lipid panel. 4. Gastroesophageal reflux disorder, chronic, present on admission, active -Maalox and calcium carbonate as needed. The patient is admitted to the hospital related to severity of symptoms and associated risk of adverse events or complications. The patient is admitted as observation with expected length of stay to be less than 2 midnights. Scores GCS Melonie coma scale eye opening: Spontaneous [place] coma scale verbal response: Orientated Melonie coma scale motor response: Obey commands [place] coma scale total score: 15 ABCD2 Age >= 60 years: yes Initial BP. Either SBP >= 140 or DBP >= 90.: yes Clinical features of the TIA: speech disturbance without weakness Duration of symptoms: >= 60 minutes History of diabetes: no ABCD2 Score: 5 NIHSS Level of Conciousness: Alert, keenly responsive Ask month/age: Answers both questions correctly. Open/close eyes, close hand: Performs both tasks correctly Best gaze horizontal: Normal Visual heredia: No visual loss Facial palsy: Normal symetrical movement Left arm drift: No drift for full 10 sec Right arm drift: No drift for full 10 sec Left leg drift: No drift for full 5 sec Right leg drift: No drift for full 5 sec Limb ataxia: Absent Sensory on face/arms/legs: Normal, no sensory loss Best language: No aphasia, normal Dysarthria: Normal Extinction or inattention: No abnormality Total NIH Stroke scale score: 0 Quality VTE Deep Vein Thrombosis/Pulmonary Embolism Present on Admission: No
[2018-12-20 06:05] LABS: Alanine Aminotransferase 32 IU/L (21-72); Albumin 3.6 g/dL (3.5-5.0); Albumin Globulin Ratio 1.3 (1.0-2.8); Alkaline Phosphatase 49 U/L (38-126); Aspartate Aminotransferase 36 IU/L (17-59); BUN Creatinine Ratio 17.5 (6-22); Bilirubin Total 0.6 mg/dL (0.2-1.3); Blood Urea Nitrogen 14 mg/dL (9-20); Calcium 8.9 mg/dL (8.4-10.2); Carbon Dioxide 25 mmol/L (22-32); Chloride 108 mmol/L (98-107); Cholesterol 128 mg/dL (140-199); Estimated Glomerular Filt Rate > 60.0 mL/min (>60); Globulin 2.8 g/dL (1.7-4.1); Glucose 87 mg/dL (80-110); HDL Cholesterol 43 mg/dL (40-60); HEMOLYSIS 19 (0-50); LDL Cholesterol Calculated 66 mg/dL (<100); Potassium 3.8 mmol/L (3.4-5.1); Sodium 138 mmol/L (137-145); Total Protein 6.4 g/dL (6.3-8.2); Triglycerides 94 mg/dL (35-150)
[2018-12-20] MEDS: METOPROLOL ER 25 MG TABLET PO (10:19)
[2018-12-20] MEDS: ROSUVASTATIN 10 MG TABLET 20 MG PO (10:19)
[2018-12-20] MEDS: SODIUM CHLORIDE 0.9% FLUSH 10 ML IV ×2 (10:20→22:18)
--- NOTE | 2018-12-20 11:12 | PT.IIE ---
Surgical History (Last Updated 12/20/18 @ 06:14 by SCARLETT Cardenas) No history of previous surgery (Acute) Medical History (Last Updated 12/20/18 @ 06:14 by SCARLETT Cardenas) Afib (Acute) BPH (benign prostatic hyperplasia) (Acute) GERD (gastroesophageal reflux disease) (Acute) Hyperlipidemia (Acute) Physical Therapy Inpatient Evaluation/Re-Eval M1 PT/OT-IP Prior Functional Status Start: 12/20/18 08:16 Freq: NEEDED Status: Active Protocol: Document 12/20/18 08:45 (Rec: 12/20/18 11:11 [id number]) Medical Review Prior Functional Status Medical History Reviewed Yes Communication no deficits noted. Able to make needs known Mobility and Gait independent with mobility and community without using AD. Activities of Daily Living and IADL's Independent with ADLs and IADLs Social History Household Members spouse Living Arrangements House Number of Floors (Floors) Two Floors Number of Stairs To Enter/Railing? no HARJIT to 2nd level home. 10 steps down with L rail to 1st level Home Environment Standard Height Toilet,Walk in Shower Home Equipment Straight Cane Employment Status Retired Additional Social History Comment Pt lives with his spouse in [facility]. They primarily stay on 2nd level. 1st level has guest rooms. Pt was dx with A- fib a month ago. He had R visual field change and expressive aphasia yesterday from 4-6pm but it was resolved after he was admitted to . M2 PT-IP Current Condition Start: 12/20/18 08:16 Freq: NEEDED Status: Active Protocol: Document 12/20/18 08:45 (Rec: 12/20/18 11:11 [id number]) Physical Therapy Current Condition Current Condition Evaluation Date 12/20/18 Treatment Diagnosis TIA, loss of memory, visual field change, expressive aphasia Onset Date 12/19/18 Weight Bearing Status Weight Bearing Status Full Weight Bearing M3 PT-IP Subjective Start: 12/20/18 08:16 Freq: NEEDED Status: Active Protocol: Document 12/20/18 08:45 (Rec: 12/20/18 11:11 [id number]) Subjective Physical Therapy Visit Type Type Initial Evaluation Visit Start Time 08:45 Visit Stop Time 09:00 Total Visit Minutes 15 Notes Pt is going to have MRI and echo this morning. Number of MINE CAR DISPATCHER Visits 0 Physical Therapy Visit Comments Patient Comments I feel normal at this point. Patient Goals To return home with spouse Therapy Pain Assessment Pain Present Pain Present Denied Pain M4 PT-IP Mobility and Gait Start: 12/20/18 08:16 Freq: NEEDED Status: Active Protocol: Document 12/20/18 08:45 (Rec: 12/20/18 11:11 [id number]) PT-Bed Mobility Assessment Rolling Type of Rolling Roll to Left Level of Assist Independent Supine to Sit Supine to Sit Independent Scooting Scooting to Edge of Bed Independent Scooting Up and Down in Bed Independent PT-Transfer Assessment Sit to and From Stand Sit to and from Stand Independent Equipment Transfer Assistive Device None Orthotic/Prosthetic Devices or Brace: No Transfers Transfer Destination Bed,Chair Transfer Technique Stand Step Pivot Transfer Ability Level of Assist Independent Comments Mobility Comments Pt was in bed upon assessment. He completed supine to long sit and sitting EOB independently. He then stood up without UE support and amb half of the AC unit without AD for ~220 ft. Pt appears very steady and no LOB signs. He was also able to single leg stance up to 5-10 seconds equally on both sides. Gait Assessment Gait Gait Assistance Required: Independent Distance (Feet) 220 Able to Maintain Weight Bearing Status Yes During Gait Assistive Devices Assistive Device None Orthotic/Prosthetic Devices or Brace: No Gait Deviations General Gait Pattern Within Normal Limits Comments Gait Comments see mobility comments Stair Climbing Assessment Evaluation Level of Assist On Stairs Independent,Standby Assistance Devices Stair Climbing Assistive Devices None,Left Railing Technique/Endurance Stair Climbing Direction Ascend and Descend Stair Climbing Technique Step Over Step,Step to Step Number of Steps Climbed 3 Query Text: Stair Climbing Set # Repetitions (reps) 2 Comments Stair Climbing Comments SBA for stair climbing without L rail Independent for stair climbing with L rail PT-Balance Assessment Sitting Balance and Reactions Static Sitting Balance Ability Normal Dynamic Sitting Balance Ability Normal Standing Balance and Reactions Static Standing Balance Ability Normal Dynamic Standing Balance Ability Normal Device Used none Balance Tests Single Limb Standing 5-10s M5 PT-IP Objective Assessments Start: 12/20/18 08:16 Freq: NEEDED Status: Active Protocol: Document 12/20/18 08:45 (Rec: 12/20/18 11:11 [id number]) Orientation Orientation/Cognition Level of Alertness Alert Orientation Name,Age,Birthday,Month,Date, Year,Day of Week,Place, Situation Language Function Ability No Deficits Noted Safety Awareness Understands Safety Issues Memory Description No Deficits Noted Gross Range of Motion Upper Extremity ROM Assessment Within Functional Limits Lower Extremity ROM Assessment Within Functional Limits Strength Upper Extremity Strength Assessment Within Functional Limits Lower Extremity Strength Assessment Within Functional Limits Coordination Assessment Gross Coordination Gross Coordination WNL Assessment Finger to Nose Test Normal Performance Pronation/Supination Test Normal Performance Foot Tapping Test Normal Performance Heel on Leonard Test Normal Performance Sensation Assessment Sensation Gross Sensation WNL Light Touch Intact Proprioception (Position) Intact Muscle Tone Muscle Tone WNL Yes M6 PT-IP Treatment Start: 12/20/18 08:16 Freq: NEEDED Status: Active Protocol: Document 12/20/18 08:45 (Rec: 12/20/18 11:11 [id number]) Physical Therapy Treatment Education Education Provided Safety M7 PT-IP Assessment and Plan Start: 12/20/18 08:16 Freq: NEEDED Status: Active Protocol: Document 12/20/18 08:45 (Rec: 12/20/18 11:11 [id number]) PT Summary Assessment and Plan Potential Rehabilitation Potential Excellent Status of Condition at Evaluation Stable Summary Progress Towards Goals Safe For Discharge Assessment Summary Pt is an eval only for possible TIA. Upon assessment, pt's symptoms have resolved from yesterday already. He did not present any deficits from gross motor and fine motor control. Overall ROM and strength remains intact and at baseline. No signs of LOB noticed. Visual field is also intact. Pt will have echo and MRI screen for further evaluation. Pt does not need skilled therapy at this point and he will be safe to be d/c home once he is medically stable. Frequency of Treatment Frequency Of Treatment Discharge Discharge Recommendations PT Discharge Recommendations Home
--- NOTE | 2018-12-20 11:49 | CM.DANOTE ---
DCP:Case received, EMR reviewed and met with patient. Introduced self and role. Was able to meet with patient in his room to obtain baseline health and activity information. DCP assessment/template completed with information currently available. Patient is a 73 year old male who admitted yesterday evening to the care of the hospitalist team. PCP: Dr. Valderrama. Payer: confirmed: [facility]. Patient came to the hospital via ambulance secondary to some apashia and some temporary loss of his vision. Patient had recently had a physical with Dr. Valedrrama, and was diagnosed with a-fib, and was started on Warfarin. Patient diagnosed with TIA, but he is having an MRI today. Met with patient in his room. His speech was clear, stated, he vision was improved. Stated that he had never had these type of symptoms before. Patient is independent at baseline, and resides with his , Xochilt, in [place]. P: DCP to continue to follow. He could potentially go home today depending on test results. Telma Maravilla RN/Portable Feed Mill Operator
--- NOTE | 2018-12-20 14:47 | OT.IP.EVAL ---
Past Medical History (Last Updated 12/20/18 @ 06:14 by SCARLETT Cardenas) Afib (Acute) BPH (benign prostatic hyperplasia) (Acute) GERD (gastroesophageal reflux disease) (Acute) Hyperlipidemia (Acute) Surgical History (Last Updated 12/20/18 @ 06:14 by SCARLETT Cardenas) No history of previous surgery (Acute) Occupational Therapy Inpatient Evaluation/Re-Eval M1 PT/OT-IP Prior Functional Status Start: 12/20/18 14:21 Freq: NEEDED Status: Active Protocol: Document 12/20/18 14:21 [facility] (Rec: 12/20/18 14:46 [facility] [id number]) Medical Review Prior Functional Status Medical History Reviewed Yes Communication no deficits noted. Able to make needs known Mobility and Gait independent with mobility and community without using AD. Activities of Daily Living and IADL's Independent with ADLs and IADLs Prior Functional Level (Other details) Pt volunteers at the [employer]. Social History Household Members spouse Living Arrangements House Number of Floors (Floors) Two Floors Number of Stairs To Enter/Railing? no HARJIT to 2nd level home. 10 steps down with L rail to 1st level Home Environment Standard Height Toilet,Walk in Shower Home Equipment Straight Cane Employment Status Retired Additional Social History Comment Pt lives with his spouse in [facility]. They primarily stay on 2nd level. 1st level has guest rooms. Pt was dx with A- fib a month ago. He had R visual field change and expressive aphasia yesterday from 4-6pm but it was resolved after he was admitted to . M2 OT-IP Current Condition Start: 12/20/18 14:21 Freq: Status: Active Protocol: Document 12/20/18 14:21 [facility] (Rec: 12/20/18 14:46 [facility] [id number]) Occupational Therapy Current Condition Current Condition Evaluation Date 12/20/18 Treatment Diagnosis TIA Diagnosis Onset Date 12/19/18 Weight Bearing Status Weight Bearing Status Weight Bear as Tolerated M3 OT- IP Subjective and Pain Start: 12/20/18 14:21 Freq: Status: Active Protocol: Document 12/20/18 14:21 [facility] (Rec: 12/20/18 14:46 [facility] [id number]) OT- Subjective Occupational Therapy Visit Type Type Initial Evaluation Visit Start Time 14:00 Visit Stop Time 14:16 Total Visit Minutes 16 Occupational Therapy Visit Comments Patient Comments Pt agreeable to get up for OT eval. Patient/Caregiver Goals Pt wanting to go home after medical testing completed. OT Pain Assessment Pain When Pain Assessed At Rest Pain Present Pain Present Denied Pain M4 OT- IP ADL's Start: 12/20/18 14:21 Freq: Status: Active Protocol: Document 12/20/18 14:21 [facility] (Rec: 12/20/18 14:46 [facility] [id number]) OT ADL-Dressing General Eval Lower Body Dressing Ability Independent Comments OT Dressing Comments Pt able to leon tie shoes while sitting. OT ADL-Toileting Comments OT Toileting Comments Pt states has been independent for all toileting needs in the room. M5 OT- IP IADL's Start: 12/20/18 14:21 Freq: Status: Active Protocol: Document 12/20/18 14:21 [facility] (Rec: 12/20/18 14:46 [facility] [id number]) OT-Instrumental Activities of Daily Living Home Safety Awareness Ability to Problem Solve Emergency Able to Problem Solve Situations Home Safety Comments Pt able to answer home safety situation with 100% accuracy. Medication Management Medication Management No Deficits Identified Money Management Money Management No Deficits Identified M6 OT- IP Functional Cognition Start: 12/20/18 14:21 Freq: Status: Active Protocol: Document 12/20/18 14:21 [facility] (Rec: 12/20/18 14:46 [facility] [id number]) Cognitive Factors Limiting Selfcare Function Cognitive Ability Level of Alertness Alert Patient Orientation Name,Age,Birthday,Month,Date, Year,Day of Week,Place, Situation Attention Span Ability Capable of Focused Attention, Capable of Sustained Attention Ability to Follow Commands Able to Follow Multi-Step Commands Memory Description No Deficits Noted Safety Awareness No Deficits Noted Problem Solving Ability No deficits Noted Executive Function Ability Unable to Remember Details Cognitive Comments Cognitive Assessment Comments Pt able to follow multiple commands. Pt scored 112 seconds on [place] [employer] B which implies mild deficits for mental flexibility and executive function. Suggested for pt to drive with his initially and slowly get back to his daily routine. OT- Vision and Hearing OT- Hearing Assessment OT- Hearing Assessment WFL OT- Vision Assessment Visual Acuity WFL Occular Pursuits WFL Visual Convergence WFL Visual [place] WFL Diplopia Absent M7 OT- IP Mobility and Balance Start: 12/20/18 14:21 Freq: Status: Active Protocol: Document 12/20/18 14:21 [facility] (Rec: 12/20/18 14:46 [facility] [id number]) OT- Bed Mobility Assessment Supine to Sit Supine to Sit Assist Independent OT-Transfer Assessment Sit to and From Stand Sit to and from Stand Independent Transfers Transfer Ability Independent Technique Transfer Destination Bed,Chair Transfer Technique Stand Step Pivot Devices Transfer Assistive Devices None Comments Mobility Comments Pt completely independent in the room without a device. OT- Balance Assessment Sitting Balance and Reactions Static Sitting Balance Ability Normal Dynamic Sitting Balance Ability Normal Standing Balance and Reactions Static Standing Balance Ability Normal Dynamic Standing Balance Ability Good Comments Other Balance Tests/Deviations/Treatment Pt able to get up and down : from the floor independently and able to lift carry the garbage can while walking in the room. M8 OT- IP Objective Assessments Start: 12/20/18 14:21 Freq: Status: Active Protocol: Document 12/20/18 14:21 [facility] (Rec: 12/20/18 14:46 [facility] [id number]) OT Gross Range of Motion Upper Extremity Range of Motion Assessment Within Functional Limits OT Strength Upper Extremity Strength Assessment Within Functional Limits OT-Muscle Tone Assessment Muscle Tone WNL Yes M9 OT- IP Assessment and Plan Start: 12/20/18 14:21 Freq: Status: Active Protocol: Document 12/20/18 14:21 [facility] (Rec: 12/20/18 14:46 [facility] [id number]) OT Summary Assessment and Plan Potential Rehabilitation Potential Excellent Analytic Complexity at Evaluation Low Summary Progress Towards Goals Safe For Discharge Assessment Summary Pt low complexity with TIA which all symptoms have resolved. Noted mild impairment for higher level cognitive task and suggested that pt have with him prior to trying to drive on his own. In addition to get back to his daily routine slowly and have there. For example, to not to do all the yard work in one day and do it a little bit at a time and when present. Pt expected to go home after all testing completed. Discharge pt from OT services. Goals Patient/Caregiver Education Goal Demonstrate Energy Conservation and Pacing Days to Meet Goals 1 Frequency of Treatment Frequency Of Treatment Once a Day Treatment Plan OT Treatment Plan Patient/Family Education, Discharge Planning Discharge Recommendations OT Discharge Recommendations Home with Assistance
--- NOTE | 2018-12-20 16:24 | P.PN_ITS ---
Subjective Subjective Date Patient Seen: 12/20/18 Interval history: Patient is a 73-year-old male who was admitted to the hospital for evaluation of a probable TIA. Patient developed abrupt onset of vision loss in both eyes associated with expressive aphasia. His symptoms quickly resolved. He has had no further visual changes and no further speech abnormalities. Exam Vital Signs (past 8 hours): - 12/20/18 10:00 12/20/18 10:19 12/20/18 12:00 Temperature 97.5 F L Pulse Rate 78 Respiratory Rate 16 Blood Pressure 121/80 132/77 Pulse Oximetry 97 99 12/20/18 14:00 12/20/18 15:15 Temperature 98.0 F Pulse Rate 78 Respiratory Rate 18 Blood Pressure 112/62 Pulse Oximetry 97 97 Oxygen Delivery Method Room Air Oxygen Flow Rate 0 Narrative Exam Narrative: Pleasant gentleman resting comfortably in no obvious distress HEENT: Normocephalic atraumatic, extraocular muscles are intact, oropharynx is clear Lungs: Clear to auscultation Cardiac exam: Regular rate and rhythm normal S1-S2 Abdomen: Soft nontender nondistended Extremities: No edema Neuro exam: Nonfocal Objective Labs Result Diagrams: 12/19/18 17:25 12/20/18 05:20 Labs: Laboratory Results - last 24 hr 12/19/18 12/19/18 12/19/18 17:25 17:25 17:25 WBC 6.6 RBC 5.06 Hgb 15.7 Hct 47.5 MCV 93.9 MCH 31.0 MCHC 33.0 RDW 13.3 Plt Count 207 Neut % (Auto) 65.6 Lymph % (Auto) 22.6 L [place] % (Auto) 9.6 Eos % (Auto) 1.3 L Baso % (Auto) 0.9 Neut # (Auto) 4300 Lymph # (Auto) 1500 [place] # (Auto) 600 Eos # (Auto) 100 Baso # (Auto) 100 PT 26.0 H INR 2.2 H APTT 48 H Sodium 139 Potassium 4.2 Chloride 105 Carbon Dioxide 25 BUN 17 Creatinine 0.80 Estimated GFR > 60.0 BUN/Creatinine Ratio 21.3 Glucose 91 Calcium 9.2 Total Bilirubin 0.5 AST 37 ALT 37 Alkaline Phosphatase 50 Total Creatine Kinase 41 L CK-MB (CK-2) TNP CK-MB (CK-2) Rel Index TNP Troponin I < 0.012 Total Protein 7.2 Albumin 4.2 Globulin 3.0 Albumin/Globulin Ratio 1.4 Triglycerides Cholesterol LDL Cholesterol, Calc HDL Cholesterol Lipase 12/19/18 12/20/18 17:41 05:20 WBC RBC Hgb Hct MCV MCH MCHC RDW Plt Count Neut % (Auto) Lymph % (Auto) [place] % (Auto) Eos % (Auto) Baso % (Auto) Neut # (Auto) Lymph # (Auto) [place] # (Auto) Eos # (Auto) Baso # (Auto) PT INR APTT Sodium 138 Potassium 3.8 Chloride 108 H Carbon Dioxide 25 BUN 14 Creatinine 0.80 Estimated GFR > 60.0 BUN/Creatinine Ratio 17.5 Glucose 87 Calcium 8.9 Total Bilirubin 0.6 AST 36 ALT 32 Alkaline Phosphatase 49 Total Creatine Kinase CK-MB (CK-2) CK-MB (CK-2) Rel Index Troponin I Total Protein 6.4 Albumin 3.6 Globulin 2.8 Albumin/Globulin Ratio 1.3 Triglycerides 94 Cholesterol 128 L LDL Cholesterol, Calc 66 HDL Cholesterol 43 Lipase 135 Assessment & Plan Assessment & Plan narrative: 1. 73-year-old male with multiple risk factors who admitted to the hospital for TIA. MRI was obtained today which is negative for an acute ischemic event. The patient is on Coumadin for chronic atrial fibrillation. His INR is therapeutic at 2.2. Echocardiogram has been and ordered. Anticipate getting the echo tomorrow. If the echo does not show a large PFO or abnormality to explain his TIA the patient will be discharged home. 2. Hyperlipidemia, continue rosuvastatin 3. Persistent atrial fibrillation continue Coumadin 4. Hypertension, chronic, continue metoprolol Anticipate patient to be discharged home following echocardiogram. Quality VTE Deep Vein Thrombosis/Pulmonary Embolism Present on Admission: No
[2018-12-20] MEDS: WARFARIN 2.5 MG TABLET PO (16:31)
[2018-12-21] VITALS (10 sets, daily range): BP systolic 104–123; BP diastolic 54–76; PULSE 76–92; RESP 16; TEMP 36.1–36.6; O2SAT 95–100
[2018-12-21] MEDS: METOPROLOL ER 25 MG TABLET PO (10:11)
[2018-12-21] MEDS: SODIUM CHLORIDE 0.9% FLUSH 10 ML IV (10:12)
[2018-12-21] MEDS: ROSUVASTATIN 10 MG TABLET 20 MG PO (10:12)
--- NOTE | 2018-12-21 15:04 | PC.NURSE ---
Discharge d/c instructions provided to pt. Aware to f/u with Dr Valderrama tomorrow. pt took all belongings with him. walked out with assistant chief nursing officer to car where was waiting.
--- NOTE | 2018-12-21 18:46 | P.DS_ITS ---
History of Present Illness History of Present Illness Date Patient Seen: 12/21/18 Chief complaint: Loss of memory, unable to speak,(resolved) Narrative: Mr. Jerry Lawler this is a 73-year-old male patient with history significant of newly diagnosed atrial fibrillation 1 month ago started on warfarin therapy, hyperlipidemia, BPH, and GERD who presents to the ER with an abrupt onset of right visual field loss in both eyes at 4:00 p.m. the patient also developed aphasia stating he knew what he wanted to say could not get the words out. He states the symptoms abated by proximally 6:00 p.m. and had resolved by arrival to the ER. Patient had no prodromal symptoms no complaints of headaches or dizziness, no prior visual changes, no complaints of sore throat or nasal congestion. He reports no neck pain or back pain has no complaints of chest pain and appears unaware of his irregular heart rate. He reports no complaints of shortness of breath cough or wheezing. He has no abdominal pain nausea vomiting or changes in bowel or bladder habits. He experienced no ataxia or limb weakness. Upon arrival to the ER the patient is afebrile with temperature 97.9?, heart rate of 83, blood pressure 131/85, respirations of 15 with saturation of 99% on room air. He underwent CT which found no intracranial pathology and a chest x- ray was completed which also was negative for significant findings. His EKG shows atrial fibrillation with ventricular rate of [address] or T-wave changes. On laboratory analysis white count 6.6, hemoglobin of 15.7, hematocrit 47.5 and platelets of 207. On coagulation he has a PT of 26.0, PTT of 48 an INR of 2.0. His electrolytes are all within normal limits and has a BUN of 17 and creatinine is 0.8 with a nonfasting glucose of 91. His liver functions are all within normal range. The patient is admitted for further monitoring evaluation of TIA. Discharge Providers Provider Date of admission: 12/19/18 20:31 Discharge Date: 12/21/18 Consults: 12/19/18 23:31 Consult to Occupational Therapy Evaluate & Treat Comment: TIA Physician Instructions: Evaluate and treat Consult to Physical Therapy Evaluate & Treat Comment: TIA Physician Instructions: Evaluate and Treat 12/19/18 23:34 Consult to Dietitian, Adult Routine Comment: Reason For Exam: Atrial fibrillation on warfarin, TIA Consult to Discharge Planning Routine Comment: Discharge provider: Asmita Fink MD Summary Hospital Course Discharge Diagnosis: 1. Transient ischemic attack 2. Persistent atrial fibrillation 3. Hyperlipidemia 4. GERD 5. BPH Hospital Course: Patient is a 73-year-old male who was in his usual state of health who developed abrupt onset bilateral vision loss. He also reported inability to get words out. Patient states his speech was fine but he could not get the words out. He presented to the hospital for evaluation. His symptoms quickly resolved. The patient had no further symptoms to include speech or visual abnormalities. His NIH score was 0. Patient was monitored and observed in the hospital. Cardiac echo was obtained to rule rule out the possibility of an embolic focus. The patient remained on Coumadin. His INR was therapeutic at 2.2. Baby aspirin was added to his regimen. Patient had no further neurological sequela. He was deemed appropriate for discharge .. The patient has a follow-up appointment with Dr. Valderrama tomorrow. He will follow up with Dr. Valderrama for the results of his echocardiogram which was done today. Patient was deemed appropriate for discharge home. Exam Vital Signs (past 8 hours): - 12/21/18 14:34 Pulse Oximetry 95 Oxygen Delivery Method Room Air Oxygen Flow Rate 0 Narrative Exam Narrative: Pleasant gentleman in no obvious distress Cranial nerves 2-12 are intact speech is fluent strength is symmetric and equal, sensation is grossly intact reflexes are equal Lungs: Clear to auscultation Cardiac exam: Regular rate and rhythm normal S1-S2 Abdomen soft nontender nondistended Extremities: No edema Objective Labs Result Diagrams: 12/19/18 17:25 12/20/18 05:20 Discharge Plan Discharge Plan Patient Disposition: Home Discharge comment: f/u with Dr. Valderrama for Echo results Discharge Med Rec/Prescriptions Prescriptions: New aspirin 81 mg tablet,delayed release (DR/EC) 81 mg PO DAILY Qty: 30 RF: 0 Continued warfarin 5 mg Tablet 5 mg PO Q OTHER DAY RF: 0 warfarin 5 mg Tablet 2.5 mg PO Q OTHER DAY RF: 0 metoprolol succinate 25 mg Tablet Extended Release 24 Hr 25 mg PO DAILY RF: 0 rosuvastatin 10 mg Tablet 10 mg PO DAILY RF: 0 multivitamin Tablet 1 tab PO DAILY RF: 0 CoQ-10 1 tab PO DAILY RF: 0 Vitamin B Tablet 1 tab PO DAILY RF: 0 Vitamin D3 1 cap PO DAILY RF: 0 Reservatrol 1 dose PO DAILY RF: 0 Provider Discharge Instructions Diet: Low-sodium and Low-cholesterol Activity: as tolerated Visit Report/Discharge Packet Instructions: DI for Transient Ischemic Attack Discharge Data Attending Provider: Nakul Spencer Admit Date/Time: 12/19/18 20:31 Discharges patient from system. Discharge Date/Time: 12/21/18 15:00 Quality VTE Deep Vein Thrombosis/Pulmonary Embolism Present on Admission: No
== END 2018-12-21 15:00 | disposition home or self-care (01) ==
LOC: ED 18:28 → AC 20:32
PROVIDERS: Emergency Medicine; Admitting Provider Nurse Practitioner Adult Health; Emergency Provider Nurse Practitioner Family; Visit Provider Nurse Practitioner Adult Health
DX: R29.818 Other symptoms and signs involving the nervous system (principal); R47.01 Aphasia; H54.7 Unspecified visual loss; Z79.01 Long term (current) use of anticoagulants; E78.5 Hyperlipidemia, unspecified; N40.0 Benign prostatic hyperplasia without lower urinary tract symptoms; K21.9 Gastro-esophageal reflux disease without esophagitis; G45.9 Transient cerebral ischemic attack, unspecified; I48.19 Other persistent atrial fibrillation
CPT/HCPCS: 36415; 70450; 70553; 71045; 80053; 80061; 81003; 82550; 82962; 83690; 84484; 85025; 85610; 85730; 93005; 93306; 97161; 97165; 99283; 99285; G0378; A9579

== ENCOUNTER → 2019-03-22 18:53 | Outpatient (ROUT) | payer OTHER, SELFPAY ==
[2018-12-19 21:46] VITALS: BMI 22.4
[2019-03-22 19:15] LABS: INR 4.5 (0.9-1.3); Prothrombin Time 53.4 SECONDS (10.1-12.7)
== END ==
PROVIDERS: Visit Provider Internal Medicine
DX: I48.91 Unspecified atrial fibrillation (principal)
CPT/HCPCS: 85610

== ENCOUNTER → 2019-04-09 10:22 | Outpatient (ROUT) | payer OTHER, SELFPAY ==
[2018-12-19 21:46] VITALS: BMI 22.4
[2019-04-09 10:50] LABS: Prothrombin Time 68.1 SECONDS (10.1-12.7)
== END ==
PROVIDERS: Visit Provider Internal Medicine
DX: I48.91 Unspecified atrial fibrillation (principal)
CPT/HCPCS: 85610

== ENCOUNTER → 2019-09-11 08:56 | Outpatient (CLI) | payer OTHER, SELFPAY ==
[2018-12-19 21:46] VITALS: BMI 22.4
--- NOTE | 2019-09-11 09:34 | DI.ECHO.S_ITS ---
Echocardiogram Report + + :Name: SUSANNE CHANDLER Study Date: 09/11/2019 Height: 73 in : :[facility] Weight: 180 lb : : Gender: Male BSA: 2.1 m2 : :: 1945 Age: 74 yrs BP: 118/76 mmHg: :Reason For Study: Cardiomyopathy : :Ordering Physician: ELVER, : :ALLIE Performed By: Vijaya Deluna : :Referring: ALLIE RAYA : + + Interpretation Summary The ejection fraction is estimated to be 30-35%. There is moderate global hypokinesis of the left ventricle. There has been no significant change since the previous exam. There is mild mitral regurgitation. There is mild aortic regurgitation. Procedure: A two-dimensional transthoracic echocardiogram with color flow and Doppler was performed. The study quality was technically adequate. Comparison is made with the echocardiogram of 03/27/2019. The patient was in sinus bradycardia with heart rates between 50-53 bpm during the exam. Left Ventricle: The left ventricle is normal in size. Left ventricular wall thickness is mildly increased. Left ventricular global longitudinal strain average is -19.6%. The ejection fraction is estimated to be 30-35%. There has been no significant change since the previous exam. There is moderate global hypokinesis of the left ventricle. Right Ventricle: The right ventricle is normal in size and function. Atria: Both atria are normal in size. The interatrial septum appears thin and hypermobile. There is no Doppler evidence for an interatrial shunt. Mitral Valve: There is a flat closure plane of the the mitral valve leaflets. There is mild mitral regurgitation. Aortic Valve: The aortic valve is trileaflet. The aortic valve opens well. There is thickening of the non-coronary cusp. There is no aortic valve stenosis. There is mild aortic regurgitation. Tricuspid Valve: The tricuspid valve is normal in structure and function. Pulmonary artery pressures cannot be estimated because of the lack of a measurable TR jet velocity but the IVC suggests a CVP of around 3 mmHg. Pulmonic Valve: The pulmonic valve is not well visualized. There is no pulmonic valvular regurgitation. Great Vessels: The aortic root is moderately dilated. The ascending aorta is mildly enlarged. The IVC is of normal diameter and collapses greater than 50% with a sniff. This suggests a low right atrial pressure of 3 mm Hg. Pericardium/ Pleura There is no pericardial effusion. There is no pleural effusion. MMode/2D Measurements & Calculations LVIDd: 5.6 cm LVOT diam: 2.4 cm LVIDs: 4.5 cm Ao root diam: 4.4 cm FS: 19.4 % asc Aorta Diam: 3.9 cm EPSS: 1.7 cm Ao Arch Diam (Prox Trans): 2.6 cm IVSd: 0.92 cm LVPWd: 1.1 cm LV raphael. diameter/BSA (cm/m^2): 2.7 LV sys. diameter/BSA (cm/m^2): 2.2 LA A2 area: 17.6 cm2 RA long axis: 5.5 cm LA A4 area: 16.4 cm2 RA area: 15.5 cm2 LA length (vol): 4.7 cm RA vol: 36.7 ml LA vol: 51.9 ml RA : 17.8 ml/m2 LA vol index: 25.2 ml/m2 IVC diam: 1.8 cm RVD1 (basal): 3.8 cm TAPSE: 2.0 cm Doppler Measurements & Calculations Ao V2 max: 115.9 cm/sec LVOT Max Porfirio: 92.4 cm/sec Ao V2 mean: 80.2 cm/sec LV V1 max P.4 mmHg Ao max P.4 mmHg LV V1 VTI: 17.7 cm Ao mean P.9 mmHg JES(I,D): 3.2 cm2 Ao V2 VTI: 24.4 cm JES(V,D): 3.5 cm2 sev ratio: 0.72 JES indexed to BSA (cm^2/m^2): 1.6 MV E max porfirio: 48.8 cm/sec PA V2 max: 54.2 cm/sec MV A max porfirio: 46.6 cm/sec PA V2 mean: 38.5 cm/sec MV E/A: 1.0 PA mean P.66 mmHg Med Peak E' Porfirio: 6.2 cm/sec PA pr(Accel): 7.1 mmHg E/E' med: 7.9 Lat Peak E' Porfirio: 7.6 cm/sec E/E' lat: 6.4 E/e' average: 7.2 MV dec time: 0.35 sec SV(LVOT): 78.2 ml Reading Physician:04:05 PM
== END ==
PROVIDERS: PCP Internal Medicine; Referring Provider Physician Assistant Medical; Visit Provider Physician Assistant Medical
DX: I08.0 Rheumatic disorders of both mitral and aortic valves (principal); I77.810 Thoracic aortic ectasia; I42.8 Other cardiomyopathies
CPT/HCPCS: 93306

== ENCOUNTER → 2019-12-11 19:24 | Outpatient (ROUT) | payer OTHER, SELFPAY ==
[2018-12-19 21:46] VITALS: BMI 22.4
[2019-12-11 19:41] LABS: Add Manual Diff / Slide Review NO; Basophils Absolute Auto 100 /uL (0-100); Basophils Percent Auto 1.4 % (0-2); Eosinophils Absolute Auto 100 /uL (0-450); Hematocrit 44.1 % (41-53); Hemoglobin 14.5 g/dL (13.5-17.5); Lymphocytes Absolute Auto 1200 /uL (1100-4500); Lymphocytes Percent Auto 21.8 % (25-40); Mean Corpuscular Hemoglobin 30.8 PG (26-34); Mean Corpuscular Volume 93.3 fL (80-100); Monocytes Absolute Auto 600 /uL (0-900); Monocytes Percent Auto 11.7 % (3-14); Neutrophils Absolute Auto 3400 /uL (1500-7000); Neutrophils Percent Auto 63.1 % (50-75); Platelet Count 227 X10^3/uL (150-400); Red Blood Cell Count 4.72 X10^6/uL (4.5-5.9); White Blood Cell Count 5.4 X10^3/uL (4.5-11.0)
[2019-12-11 19:53] LABS: Cholesterol 145 mg/dL (140-199); HDL Cholesterol 71 mg/dL (40-60); LDL Cholesterol Calculated 59 mg/dL (<100); Triglycerides 75 mg/dL (35-150)
== END ==
PROVIDERS: PCP Internal Medicine; Visit Provider Internal Medicine
DX: E78.2 Mixed hyperlipidemia (principal); I42.9 Cardiomyopathy, unspecified
CPT/HCPCS: 80061; 85025

== ENCOUNTER → 2021-11-04 12:56 | Outpatient (CLI) | payer OTHER, SELFPAY ==
[2018-12-19 21:46] VITALS: BMI 22.4
[2021-11-04 14:38] LABS: Alanine Aminotransferase 24 IU/L (<50); Albumin 3.8 g/dL (3.5-5.0); Albumin Globulin Ratio 1.5 (1.0-2.8); Alkaline Phosphatase 43 U/L (38-126); Aspartate Aminotransferase 28 IU/L (17-59); BUN Creatinine Ratio 14.3 (6-22); Bilirubin Total 0.4 mg/dL (0.2-1.3); Blood Urea Nitrogen 15 mg/dL (9-20); Carbon Dioxide 26 mmol/L (22-32); Chloride 107 mmol/L (98-107); Estimated Glomerular Filt Rate > 60 mL/min (>60); Globulin 2.5 g/dL (1.7-4.1); Glucose 80 mg/dL (80-110); HEMOLYSIS < 15 (0-50); Potassium 4.4 mmol/L (3.4-5.1); Sodium 138 mmol/L (137-145); Total Protein 6.3 g/dL (6.3-8.2)
[2021-11-04 15:07] LABS: TSH w/ Reflex to FT4 0.67 uIU/mL (0.47-4.68)
== END ==
PROVIDERS: PCP Internal Medicine; Referring Provider Internal Medicine Cardiovascular Disease; Visit Provider Internal Medicine Cardiovascular Disease
DX: I48.91 Unspecified atrial fibrillation (principal); Z79.899 Other long term (current) drug therapy; Z86.73 Personal history of transient ischemic attack (TIA), and cerebral infarction without residual deficits; I42.8 Other cardiomyopathies; Z95.810 Presence of automatic (implantable) cardiac defibrillator
CPT/HCPCS: 36415; 80053; 84443

== ENCOUNTER → 2021-12-02 10:04 | Outpatient (CLI) | payer OTHER, SELFPAY ==
[2018-12-19 21:46] VITALS: BMI 22.4
[2021-12-02 12:14] LABS: Magnesium 2.1 mg/dL (1.6-2.3)
[2021-12-04 09:42] LABS: Cholesterol, Total 146 mg/dL (100-199); HDL-Cholesterol 62 mg/dL (>39); LDL Particle 790 nmol/L (<1000); LDL Size 20.8 nm (>20.5); LDL-Cholsterol 70 mg/dL (0-99); LP-IR Score 46 (<=45); Small LDL- Particle 439 nmol/L (<=527); Triglycerides 72 mg/dL (0-149)
== END ==
PROVIDERS: PCP Internal Medicine; Referring Provider Specialist; Visit Provider Specialist
DX: I48.91 Unspecified atrial fibrillation (principal); E78.2 Mixed hyperlipidemia
CPT/HCPCS: 36415; 80061; 83704; 83735

== ENCOUNTER → 2023-01-23 11:28 | Outpatient (CLI) | payer OTHER, SELFPAY ==
[2018-12-19 21:46] VITALS: BMI 22.4
[2023-01-23 12:19] LABS: Influenza A - CEPHEID Flu A NEGATIVE (NEGATIVE); Influenza B - CEPHEID Flu B NEGATIVE (NEGATIVE); Respiratory Syncytial Virus Negative (Negative)
[2023-01-23 12:20] LABS: COVID-19 CEPHEID 4-PLEX PCR POSITIVE (Negative)
== END ==
PROVIDERS: PCP Internal Medicine; Visit Provider Nurse Practitioner Family
DX: U07.1 COVID-19 (principal); R05.9 Cough, unspecified
CPT/HCPCS: 0241U

== ENCOUNTER → 2023-04-13 11:25 | Outpatient (CLI) | payer OTHER, SELFPAY ==
[2018-12-19 21:46] VITALS: BMI 22.4
== END ==
LOC: RESP 11:25
PROVIDERS: PCP Internal Medicine; Referring Provider Specialist; Visit Provider Specialist
DX: Z79.899 Other long term (current) drug therapy (principal)
CPT/HCPCS: 94060; 94726; 94729

== ENCOUNTER 2024-01-01 03:20 | Emergency (ER) | payer OTHER, SELFPAY ==
[2018-12-19 21:46] VITALS: BMI 22.4
[2024-01-01] VITALS (8 sets, daily range): BP systolic 102–119; BP diastolic 55–72; PULSE 60; RESP 18–25; TEMP 36.3; O2SAT 95–98; BMI 22.4
--- NOTE | 2024-01-01 03:36 | EKG_ITS ---
[place] [id number] [place] [id number] Test Date: 2024-01-01 Pat Name: Jerry Lawler Department: [facility] Room: Gender: Male [employer]cher [employer] Drier: KIMBERLY JULIAN : 1945 Requested By: Order Number: [id number] Reading MD: Nakul Echevarria Measurements Intervals [place]ley Rate: 60 P: SD: 302 QRS: -23 QRSD: 96 T: 31 QT: 474 QTc: 474 Interpretive Statements Atrial-paced rhythm with prolonged AV conduction Septal infarct , age undetermined Electronically Signed On 01-03-2024 14:43:29 PDT by Nakul Echevarria
--- NOTE | 2024-01-01 03:36 | DI.RAD.S_ITS ---
PROCEDURE: XR CHEST 1V INDICATIONS: chest pain TECHNIQUE: One view of the chest was acquired. COMPARISON: [facility], CR, XR CHEST 2 VIEWS, 10/17/2019, 7:07. [facility], CR, XR CHEST 1 VIEW, 10/16/2019, 16:09. [facility], CR, XR CHEST 1V, 12/19/2018, 17:39. FINDINGS: Surgical changes and devices: An AICD is seen. The leads are seen in stable positions. Lungs and pleura: An incomplete inspiratory result is noted, causing a crowded appearance to the lung markings. Minimal streaky opacities can be seen at the lung bases. No pneumothorax or significant pleural effusions are seen. Mediastinum: The cardiac contours are within normal limits. The aorta demonstrates calcification and tortuosity. Bones and chest wall: No suspicious bony lesions. Age-appropriate bony degenerative changes are seen. Overlying soft tissues appear unremarkable. IMPRESSION: Minimal streaky opacities can be seen at the lung bases. Atelectasis is suspected. Infiltrate is considered to be less likely. If clinically appropriate, a short-term followup chest series (with PA and lateral views) performed in deep inspiration is suggested for further evaluation. Note: No significant discrepancy from the preliminary report. Dictated by: Tre Jade M.D. on 01/01/2024 at 8:33 Approved by: Tre Jade M.D. on 01/01/2024 at 8:34
[2024-01-01 03:54] LABS: Add Manual Diff / Slide Review NO; Basophils Absolute Auto 100 /uL (0-100); Basophils Percent Auto 1.8 % (0-2); Eosinophils Absolute Auto 300 /uL (0-450); Eosinophils Percent Auto 5.7 % (2-4); Lymphocytes Absolute Auto 1300 /uL (1100-4500); Lymphocytes Percent Auto 22.2 % (25-40); Mean Corpuscular HGB Conc 33.4 % (30-36); Mean Corpuscular Hemoglobin 31.4 PG (26-34); Monocytes Absolute Auto 800 /uL (0-900); Monocytes Percent Auto 12.6 % (3-14); Neutrophils Absolute Auto 3500 /uL (1500-7000); Neutrophils Percent Auto 57.7 % (50-75); Platelet Count 181 X10^3/uL (150-400); Red Blood Cell Count 4.47 X10^6/uL (4.5-5.9); Red Cell Distribution Width 13.6 % (11.6-14.8); White Blood Cell Count 6.1 X10^3/uL (4.5-11.0)
--- NOTE | 2024-01-01 04:00 | ED.CHESTPAIN ---
HPI - Chest Pain General Chief Complaint: Chest Pain Stated Complaint: thinks he's having a heart attack Time Seen by Provider: 01/01/24 03:59 Source: patient and family Mode of arrival: Ambulatory Limitations: no limitations History of Present Illness HPI narrative: 78-year-old male with no history of known coronary artery disease, has history of pacemaker, history of atrial fibrillation, takes Pradaxa chronic anticoagulation. Woke up this morning 130 with left-sided pleuritic like chest pain. Denied recent trauma injury, no recent cough fevers or chills. No leg pain or swelling symptoms. Chest pain symptoms seemed to be improved and now resolved without specific treatment or maneuvers. No recent trauma injury or new activities. Related Data Home Medications Medication Instructions Recorded Confirmed multivitamin 1 tab PO DAILY 12/19/18 10/20/23 rosuvastatin 10 mg tablet 10 mg PO DAILY 12/19/18 10/20/23 ascorbic acid (vitamin C) 1,000 mg 1 g PO DAILY Good health 04/28/22 10/20/23 tablet (Vitamin C) cholecalciferol (vitamin D3) 25 25 mcg PO DAILY 04/28/22 10/20/23 mcg (1,000 unit) capsule coenzyme Q10 300 mg capsule 300 mg PO DAILY 04/28/22 10/20/23 lisinopril 5 mg tablet 5 mg PO BID Heart issues 04/28/22 10/20/23 metoprolol succinate 50 mg 25 mg PO BID 04/28/22 10/20/23 tablet,extended release 24 hr vitamin B complex 1 tab PO DAILY 04/28/22 10/20/23 Previous Rx's Medication Instructions Recorded dabigatran etexilate 150 mg 150 mg PO BID #180 caps 04/08/23 capsule (Pradaxa) amiodarone 200 mg tablet 200 mg PO DAILY Heart issues #90 04/11/23 tabs albuterol sulfate 90 mcg/actuation 2 puff inhalation Q6H PRN 01/01/24 aerosol inhaler shortness of breath or wheezing #8.5 grams amoxicillin 875 mg tablet 875 mg PO BID dental infection 10 01/01/24 days #20 tabs amoxicillin 875 mg tablet 875 mg PO BID dental infection 10 01/01/24 days #20 tabs doxycycline hyclate 100 mg capsule 100 mg PO BID #20 caps 01/01/24 doxycycline hyclate 100 mg capsule 100 mg PO BID #20 caps 01/01/24 Allergies Allergy/AdvReac Type Severity Reaction Status Date / Time No Known Drug Allergies Allergy Verified 10/20/23 14:30 Review of Systems Review of Systems Narrative: see HPI Patient History Medical History Primary osteoarthritis involving multiple joints Thoracic aortic ectasia Mixed hyperlipidemia Essential hypertension Presence of cardiac pacemaker Sick sinus syndrome Systolic CHF, chronic Chronic anticoagulation Paroxysmal atrial fibrillation GERD (gastroesophageal reflux disease) BPH (benign prostatic hyperplasia) Hyperlipidemia Surgical History No history of previous surgery Social History household members: spouse Smoking Status: Never smoker alcohol intake: former Smoking Status: Never smoker alcohol intake frequency: 0-2 drinks per day Substance Use Type: does not use Exam Narrative Exam Narrative: GENERAL: Well-developed patient, in mild distress. HEAD: Atraumatic. Normocephalic. EYES: Pupils equal round and reactive. Extraocular motions intact. No scleral icterus. No injection or drainage. ENT: Nose without bleeding, purulent drainage. Throat without erythema, tonsillar hypertrophy or exudate. Airway patent. NECK: Trachea midline. Non tender CARDIOVASCULAR: Regular rate and rhythm without murmurs, gallops, or rubs. RESPIRATORY: Clear to auscultation. Breath sounds equal bilaterally. No wheezes, rales, or rhonchi. No chest wall tenderness, no skin rash/vesicles. GASTROINTESTINAL: Abdomen soft, non-tender, nondistended. EXTREMITIES: No edema or joint tenderness. BACK: Nontender without deformity or crepitance. No flank tenderness. NEURO: AOx3. Motor functions grossly nonfocal SKIN: No rash or erythema of visible areas Initial Vital Signs Initial Vital Signs: Vital Signs Temperature 97.4 F L 01/01/24 03:27 Pulse Rate 60 01/01/24 03:27 Respiratory Rate 18 01/01/24 03:27 Blood Pressure 119/67 01/01/24 03:27 Pulse Oximetry 96 01/01/24 03:27 Oxygen Delivery Method Room Air 01/01/24 03:27 Course Orders Ordered: Discontinued Medications Amoxicillin (Amoxicillin 250 Mg Capsule) 1,000 mg PO NOW ONE Stop: 01/01/24 05:05 Last Admin: 01/01/24 05:20 Dose: 1,000 mg Documented By: MARIA VICTORIA Doxycycline Hyclate (Doxycycline Hyclate 100 Mg Tablet) 100 mg PO NOW ONE Stop: 01/01/24 05:05 Last Admin: 01/01/24 05:20 Dose: 100 mg Documented By: MARIA VICTORIA Vital Signs Vital signs: Vital Signs - 8 hr 01/01/24 03:27 01/01/24 04:00 01/01/24 04:00 Temperature 97.4 F L Pulse Rate 60 60 Respiratory Rate 18 24 Blood Pressure 119/67 112/69 Pulse Oximetry 96 96 Oxygen Delivery Method Room Air 01/01/24 04:30 01/01/24 04:30 01/01/24 05:00 Temperature Pulse Rate 60 60 Respiratory Rate 21 18 Blood Pressure 102/65 Pulse Oximetry 96 95 Oxygen Delivery Method 01/01/24 05:00 01/01/24 05:29 01/01/24 05:29 Temperature Pulse Rate 60 Respiratory Rate 25 H Blood Pressure 109/64 112/55 L Pulse Oximetry 98 Oxygen Delivery Method 01/01/24 05:30 01/01/24 05:30 01/01/24 06:00 Temperature Pulse Rate 60 60 Respiratory Rate 25 H 23 Blood Pressure 105/59 L Pulse Oximetry 98 98 Oxygen Delivery Method 01/01/24 06:00 Temperature Pulse Rate Respiratory Rate Blood Pressure 110/55 L Pulse Oximetry Oxygen Delivery Method MDM - Chest Pain Lab Data Attestation: I reviewed the patient's lab results. Lab results narrative: White blood cell count 6100, hemoglobin 14, platelets 190572, BMP electrolytes and renal function normal, glucose 88. LFTs unremarkable. Troponin negative. 01/01/24 03:35 01/01/24 03:35 Labs: Lab Results 01/01/24 01/01/24 01/01/24 Range/Units 03:35 05:07 05:30 WBC 6.1 (4.5-11.0) X10^3/uL RBC 4.47 L (4.5-5.9) X10^6/uL Hgb 14.0 (13.5-17.5) g/dL Hct 42.0 (41-53) % MCV 94.0 (80-100) fL MCH 31.4 (26-34) PG MCHC 33.4 (30-36) % RDW 13.6 (11.6-14.8) % Plt Count 181 (150-400) X10^3/uL Neut % (Auto) 57.7 (50-75) % Lymph % (Auto) 22.2 L (25-40) % Mcpherson % (Auto) 12.6 (3-14) % Eos % (Auto) 5.7 H (2-4) % Baso % (Auto) 1.8 (0-2) % Neut # (Auto) 3500 (0928-2041) /uL Lymph # (Auto) 1300 (5234-1192) /uL Mcpherson # (Auto) 800 (0-900) /uL Eos # (Auto) 300 (0-450) /uL Baso # (Auto) 100 (0-100) /uL Sodium 138 (137-145) mmol/L Potassium 4.1 (3.4-5.1) mmol/L Chloride 105 (98-107) mmol/L Carbon Dioxide 28 (22-32) mmol/L BUN 19 (9-20) mg/dL Creatinine 1.04 (0.66-1.25) mg/dL Estimated GFR > 60 (>60) mL/min BUN/Creatinine Ratio 18.3 (6-22) Glucose 88 (80-110) mg/dL Calcium 9.3 (8.4-10.2) mg/dL Total Bilirubin 0.5 (0.2-1.3) mg/dL AST 36 (17-59) IU/L ALT 26 (<50) IU/L Alkaline Phosphatase 48 (38-126) U/L Total Creatine Kinase 60 (55-170) U/L Troponin I < 0.012 < 0.012 (0.01-0.034) ng/mL Total Protein 6.8 (6.3-8.2) g/dL Albumin 3.9 (3.5-5.0) g/dL Globulin 2.9 (1.7-4.1) g/dL Albumin/Globulin Ratio 1.3 (1.0-2.8) Lipase 140 (23-300) U/L SARS-CoV-2 (PCR) Negative (Negative) Influenza A (RT-PCR) Flu a negative (NEGATIVE) Influenza B (RT-PCR) Flu b negative (NEGATIVE) RSV (PCR) Negative (Negative) ECG Data Attestation: I personally reviewed and interpreted this ECG as follows: Interpretation: Atrial paced rhythm, rate 60. HI 302, QRS 96, QTC 474. [facility] Narrative Medical decision making narrative: 78-year-old male with chest pain EKG without obvious ischemic changes. Normal sinus rhythm rate 60. Initial troponin negative. Chest x-ray single view. Impression: ?Slight rate greater than left basilar linear opacities probably vessels and atelectasis. Slight active infiltrate/pneumonia less likely. Clinical correlation, comparison with prior study, in follow-up to resolution recommended. ? See tele radiology report Oral amoxicillin and oral doxycycline given for possible pneumonia findings on chest x-ray, with symptoms of pleuritic chest pain. Discussed possible pulmonary embolism with patient, however he does take Pradaxa, seems low risk for pulmonary embolism, offered CT angiogram testing, he declines this for now. We will repeat troponin. COVID and flu swabs negative. Repeat troponin test also negative. Advised for now to take antibiotics for pneumonia changes, 1st doses as above amoxicillin and doxycycline oral, further doses antibiotics sent to his pharmacy. Recheck symptoms with his regular doctor advised early this week. Discharged home with family. Return precautions discussed Discharge Plan Departure Patient Disposition: Home Clinical Impression: Chest pain, Pneumonia Instructions: DI for Chest Pain Activity Restrictions/Additional Instructions: Left-sided pleuritic chest pain this morning, history of atrial fibrillation on chronic anticoagulation with Pradaxa. EKG without obvious ischemic changes, blood testing with serial troponins did not show evidence for heart attack at this time. Chest x-ray suspicious for pneumonia changes per Radiology report. Maybe this is why you have the chest discomfort. It is possible to have blood clots to the lungs cause chest pain as well, however this is less likely with Pradaxa. We did discuss further imaging with chest CT angiogram to evaluate this less likely possibility, you declined this test for now. Trial of antibiotics for now with inhaler use. First dose amoxicillin antibiotic by mouth, 1st dose doxycycline antibiotic by mouth, both given in the emergency department. Further antibiotics for 10 day course sent to your pharmacy. Take antibiotics as directed. Recheck symptoms with your regular doctor next couple of days. Return to this/nearest emergency department for any change worsening symptoms or any concerns prior Prescriptions: New albuterol sulfate 90 mcg/actuation HFA aerosol inhaler 2 puff inhalation Q6H PRN (Reason: shortness of breath or wheezing) Qty: 8.5 0RF amoxicillin 875 mg tablet 875 mg PO BID 10 Days Qty: 20 0RF amoxicillin 875 mg tablet 875 mg PO BID 10 Days Qty: 20 0RF doxycycline hyclate 100 mg capsule 100 mg PO BID Qty: 20 0RF doxycycline hyclate 100 mg capsule 100 mg PO BID Qty: 20 0RF No Action dabigatran etexilate [Pradaxa] 150 mg capsule 150 mg PO BID Qty: 180 3RF amiodarone 200 mg tablet 200 mg PO DAILY Qty: 90 3RF ascorbic acid (vitamin C) [Vitamin C] 1,000 mg tablet 1 g PO DAILY metoprolol succinate 50 mg tablet extended release 24 hr 25 mg PO BID lisinopril 5 mg tablet 5 mg PO BID cholecalciferol (vitamin D3) 25 mcg (1,000 unit) capsule 25 mcg PO DAILY coenzyme Q10 300 mg capsule 300 mg PO DAILY vitamin B complex Tablet 1 tab PO DAILY rosuvastatin 10 mg Tablet 10 mg PO DAILY Patient Comments: takes medications in the afternoon multivitamin Tablet 1 tab PO DAILY Referrals: Soy Valderrama MD [Primary Care Provider] - Stand Alone Forms: Patient Portal/API
[2024-01-01 04:05] LABS: Alanine Aminotransferase 26 IU/L (<50); Albumin 3.9 g/dL (3.5-5.0); Albumin Globulin Ratio 1.3 (1.0-2.8); Alkaline Phosphatase 48 U/L (38-126); Aspartate Aminotransferase 36 IU/L (17-59); BUN Creatinine Ratio 18.3 (6-22); Bilirubin Total 0.5 mg/dL (0.2-1.3); Blood Urea Nitrogen 19 mg/dL (9-20); Calcium 9.3 mg/dL (8.4-10.2); Carbon Dioxide 28 mmol/L (22-32); Chloride 105 mmol/L (98-107); Creatine Kinase 60 U/L (55-170); Estimated Glomerular Filt Rate > 60 mL/min (>60); Globulin 2.9 g/dL (1.7-4.1); Glucose 88 mg/dL (80-110); HEMOLYSIS 20 (0-50); Lipase 140 U/L (23-300); Potassium 4.1 mmol/L (3.4-5.1); Sodium 138 mmol/L (137-145); Total Protein 6.8 g/dL (6.3-8.2)
[2024-01-01 04:17] LABS: Troponin I < 0.012 ng/mL (0.01-0.034)
[2024-01-01] MEDS: AMOXICILLIN 250 MG CAPSULE 1000 MG PO (05:20)
[2024-01-01] MEDS: DOXYCYCLINE HYCLATE 100 MG TABLET PO (05:20)
[2024-01-01 05:49] LABS: COVID-19 CEPHEID 4-PLEX PCR Negative (Negative); Influenza A - CEPHEID Flu A NEGATIVE (NEGATIVE); Influenza B - CEPHEID Flu B NEGATIVE (NEGATIVE); Respiratory Syncytial Virus Negative (Negative)
[2024-01-01 06:06] LABS: Troponin I < 0.012 ng/mL (0.01-0.034)
== END 2024-01-01 06:54 | disposition home or self-care (01) ==
PROVIDERS: Emergency Provider Emergency Medicine; PCP Internal Medicine
DX: J18.9 Pneumonia, unspecified organism (principal); R07.9 Chest pain, unspecified; I25.10 Atherosclerotic heart disease of native coronary artery without angina pectoris; Z95.0 Presence of cardiac pacemaker; I48.91 Unspecified atrial fibrillation; Z79.01 Long term (current) use of anticoagulants; Z11.52 Encounter for screening for COVID-19
CPT/HCPCS: 0241U; 36415; 71045; 80053; 82550; 83690; 84484; 85025; 93005; 99284

== ENCOUNTER 2025-02-03 12:43 | Emergency (ER) | payer OTHER, SELFPAY ==
[2018-12-19 21:46] VITALS: BMI 22.4
[2025-02-03 12:57] VITALS: BP 133/57; PULSE 60; RESP 18; TEMP 36.2; O2SAT 97; BMI 23.1
--- NOTE | 2025-02-03 13:15 | DI.CT.S_ITS ---
PROCEDURE: CT CERVICAL SPINE WO CON INDICATIONS: pain TECHNIQUE: Noncontrast 3 mm thick sections acquired from the skull base to the T4 level. Sagittal and coronal reformats were then constructed. For radiation dose reduction, the following was used: automated exposure control, adjustment of mA and/or kV according to patient size. COMPARISON: None. FINDINGS: Image quality: Excellent. Bones: No fractures or dislocations. Visualized superior ribs are intact. Soft tissues: Prevertebral soft tissues are normal in thickness. No paravertebral hematomas. No apical pneumothoraces. Lateral larynx diverticulum. IMPRESSION: No displaced fracture or traumatic subluxation. Dictated by: Kaushik Virk M.D. on 02/03/2025 at 14:00 Approved by: Kaushik Virk M.D. on 02/03/2025 at 14:04
--- NOTE | 2025-02-03 13:15 | DI.CT.S_ITS ---
PROCEDURE: CT HEAD/BRAIN WO CON INDICATIONS: pain TECHNIQUE: Noncontrast 4.5 mm thick angled axial sections acquired from the foramen magnum to the vertex, with coronal and sagittal reformats. For radiation dose reduction, the following was used: automated exposure control, adjustment of mA and/or kV according to patient size. COMPARISON: [facility], CT, CT HEAD/BRAIN WO CON, 12/19/2018, 17:41. FINDINGS: Image quality: Diagnostic. CSF spaces: Basal cisterns are patent. No extra-axial fluid collections. The ventricles are symmetric in size and shape. Brain: No intracranial bleeds or mass effect. There is cerebral volume loss, with resultant ventricular and sulcal prominence. There are periventricular and deep white matter chronic small vessel ischemic changes. There is intracranial internal carotid artery atherosclerosis. Skull and face: Calvarium and visualized facial bones appear intact, without suspicious lesions. Sinuses: Visualized sinuses and mastoids are clear. IMPRESSION: No acute intracranial pathology. Dictated by: Kaushik Virk M.D. on 02/03/2025 at 14:00 Approved by: Kaushik Virk M.D. on 02/03/2025 at 14:00
--- NOTE | 2025-02-03 14:55 | ED.NECK ---
HPI - Neck Pain/Injury General Chief Complaint: Neck Pain/Injury Stated Complaint: fall thurs, may have hit head, neck stiff Time Seen by Provider: 02/03/25 13:15 Mode of arrival: Ambulatory History of Present Illness HPI Narrative: 79-year-old gentleman playing with grandson lying back on the air mattress imbalance back hit his head and neck against the the rug 2 days ago having neck pain despite taking Tylenol with no significant relief of symptoms. Patient denies headache, dizziness, chest pain, shortness of breath, numbness, tingling, down the arm or legs back pain. Other than what is stated 14 point review system is negative. Related Data Home Medications ?Medication ?Instructions ?Recorded ?Confirmed multivitamin 1 tab PO DAILY 12/19/18 02/03/25 rosuvastatin 10 mg tablet 10 mg PO DAILY 12/19/18 02/03/25 cholecalciferol (vitamin D3) 25 25 mcg PO DAILY 04/28/22 02/03/25 mcg (1,000 unit) capsule coenzyme Q10 300 mg capsule 300 mg PO DAILY 04/28/22 02/03/25 lisinopril 5 mg tablet 5 mg PO BID Heart issues 04/28/22 02/03/25 metoprolol succinate 50 mg 25 mg PO BID 04/28/22 02/03/25 tablet,extended release 24 hr vitamin B complex 1 tab PO DAILY 04/28/22 02/03/25 Previous Rx's ?Medication ?Instructions ?Recorded dabigatran etexilate 150 mg 150 mg PO BID #180 caps 04/08/23 capsule (Pradaxa) amiodarone 200 mg tablet 200 mg PO DAILY Heart issues #90 04/11/23 tabs hydrocodone 5 mg-acetaminophen 325 1 tab PO Q4-6H PRN pain #20 tabs 02/03/25 mg tablet Allergies Allergy/AdvReac Type Severity Reaction Status Date / Time No Known Drug Allergies Allergy Verified 02/03/25 13:02 Review of Systems Review of Systems ROS Unobtainable: All systems reviewed & are unremarkable except as noted in HPI and below Patient History Medical History BPH (benign prostatic hyperplasia) Chronic anticoagulation Essential hypertension GERD (gastroesophageal reflux disease) Hyperlipidemia Mixed hyperlipidemia Paroxysmal atrial fibrillation Presence of cardiac pacemaker Primary osteoarthritis involving multiple joints Sick sinus syndrome Systolic CHF, chronic Thoracic aortic ectasia Surgical History No history of previous surgery Social History details: (Beti) household members: spouse Smoking Status: Never smoker alcohol intake: former Smoking Status: Never smoker alcohol intake frequency: 0-2 drinks per day Exam Narrative Exam Narrative: GENERAL: [79] year old patient appears stated age. Well-developed patient, in mild distress. HEAD: Atraumatic. Normocephalic. EYES: Pupils equal round and reactive. Extraocular motions intact. No scleral icterus. No injection or drainage. ENT: Nose without bleeding, purulent drainage. Throat without erythema, tonsillar hypertrophy or exudate. Airway patent. NECK: Trachea midline. Non tender decreased range of motion to the left side bending rotation flexion extension CARDIOVASCULAR: Regular rate and rhythm without murmurs, gallops, or rubs. RESPIRATORY: Clear to auscultation. Breath sounds equal bilaterally. No wheezes, rales, or rhonchi. EXTREMITIES: No edema or joint tenderness. BACK: Nontender without deformity or crepitance. No flank tenderness. NEURO: AOx3. SKIN: No rash or erythema of visible areas Initial Vital Signs Initial Vital Signs: Vital Signs Temperature 97.2 F L 02/03/25 12:57 Pulse Rate 60 02/03/25 12:57 Respiratory Rate 18 02/03/25 12:57 Blood Pressure 133/57 L 02/03/25 12:57 Pulse Oximetry 97 02/03/25 12:57 Oxygen Delivery Method Room Air 02/03/25 12:57 Course Orders Ordered: ED Orders 02/03/25 13:15 CT cervical spine wo con Stat CT head/brain wo con Stat Vital Signs Vital signs: Vital Signs - 8 hr 02/03/25 12:57 Temperature 97.2 F L Pulse Rate 60 Respiratory Rate 18 Blood Pressure 133/57 L Pulse Oximetry 97 Oxygen Delivery Method Room Air MDM - Neck Pain/Injury Imaging Data CT scan - head: Radiologist's Impression: [address] [address] [address] Scan Report Signed Patient: Jerry Lawler MR#: [id number] : 1945 Acct:[id number] Age/Sex: 79 / M Date of Service: 02/03/25 Loc: ED Accession Number: [id number] Procedure: CT head/brain wo con Ordering Provider: Pritesh Banegas D.O. PROCEDURE: CT HEAD/BRAIN WO CON INDICATIONS: pain TECHNIQUE: Noncontrast 4.5 mm thick angled axial sections acquired from the foramen magnum to the vertex, with coronal and sagittal reformats. For radiation dose reduction, the following was used: automated exposure control, adjustment of mA and/or kV according to patient size. COMPARISON: [facility], CT, CT HEAD/BRAIN WO CON, 12/19/2018, 17:41. FINDINGS: Image quality: Diagnostic. CSF spaces: Basal cisterns are patent. No extra-axial fluid collections. The ventricles are symmetric in size and shape. Brain: No intracranial bleeds or mass effect. There is cerebral volume loss, with resultant ventricular and sulcal prominence. There are periventricular and deep white matter chronic small vessel ischemic changes. There is intracranial internal carotid artery atherosclerosis. Skull and face: Calvarium and visualized facial bones appear intact, without suspicious lesions. Sinuses: Visualized sinuses and mastoids are clear. IMPRESSION: No acute intracranial pathology. CT - cervical spine: Radiologist's Impression: [place] [address] CT Scan Report Signed Patient: Jerry Lawler MR#: [id number] : 1945 Acct:[id number] Age/Sex: 79 / M Date of Service: 02/03/25 Loc: ED Accession Number: [id number] Procedure: CT cervical spine wo con Ordering Provider: Pritesh Banegas D.O. PROCEDURE: CT CERVICAL SPINE WO CON INDICATIONS: pain TECHNIQUE: Noncontrast 3 mm thick sections acquired from the skull base to the T4 level. Sagittal and coronal reformats were then constructed. For radiation dose reduction, the following was used: automated exposure control, adjustment of mA and/or kV according to patient size. COMPARISON: None. FINDINGS: Image quality: Excellent. Bones: No fractures or dislocations. Visualized superior ribs are intact. Soft tissues: Prevertebral soft tissues are normal in thickness. No paravertebral hematomas. No apical pneumothoraces. Lateral larynx diverticulum. IMPRESSION: No displaced fracture or traumatic subluxation. Dictated by: Kaushik Virk M.D. on 02/03/2025 at 14:00 [facility] Narrative Medical decision making narrative: All labwork, vital signs, gearman note, medication list, previous ER visits, and all imaging studies reviewed. CT head and cervical spine showed no acute process no displaced fracture or traumatic subluxation. Differential diagnosis fracture, dislocation, hemorrhage, contusion, sprain. Patient given [place] and will be discharged on [place] prescription. Discharge Plan Departure Patient Disposition: Home Clinical Impression: Neck pain Instructions: DI for Neck Pain Activity Restrictions/Additional Instructions: Return with new or worsening symptoms. Take medication as directed. Follow up PCP in 1-2 weeks if no improvement in symptoms. Prescriptions: New hydrocodone-acetaminophen 5-325 mg tablet 1 tab PO Q4-6H PRN (Reason: pain) Qty: 20 0RF No Action dabigatran etexilate [Pradaxa] 150 mg capsule 150 mg PO BID Qty: 180 3RF amiodarone 200 mg tablet 200 mg PO DAILY Qty: 90 3RF metoprolol succinate 50 mg tablet extended release 24 hr 25 mg PO BID lisinopril 5 mg tablet 5 mg PO BID cholecalciferol (vitamin D3) 25 mcg (1,000 unit) capsule 25 mcg PO DAILY coenzyme Q10 300 mg capsule 300 mg PO DAILY vitamin B complex Tablet 1 tab PO DAILY rosuvastatin 10 mg Tablet 10 mg PO DAILY Patient Comments: takes medications in the afternoon multivitamin Tablet 1 tab PO DAILY Referrals: Soy Valderrama MD [Primary Care Provider, Internal Medicine] Stand Alone Forms: Patient Portal/API
[2025-02-03 15:28] VITALS: BP 139/65; PULSE 62; RESP 17; O2SAT 96
== END 2025-02-03 15:29 | disposition home or self-care (01) ==
PROVIDERS: Emergency Provider Family Medicine; PCP Internal Medicine
DX: M54.2 Cervicalgia (principal); W22.8XXA Striking against or struck by other objects, initial encounter
CPT/HCPCS: 70450; 72125; 99283; 99284